=== PATIENT | male | born 1960 | race Caucasian/White ===

== ENCOUNTER 2021-04-03 20:16 | Inpatient (IN) ==
[2021-04-03 20:26] LABS: Basophils # (auto) 0.04 K/uL (0-0.2); Basophils % (auto) 0.3 %; Eosinophils # (auto) 0.04 K/uL (0-0.5); Eosinophils % (auto) 0.3 %; Hematocrit (blood only) 54.6 % (42-52); Hemoglobin 18.3 g/dL (14.0-18.0); Immature Granulocytes # (auto) 0.02 K/uL (0.00-0.02); Immature Granulocytes % (auto) 0.2 %; Lymphocytes # (auto) 1.16 K/uL (1.2-3.4); Lymphocytes % (auto) 9.8 %; Mean Corpuscular Hemoglobin 33.2 pg (25-34); Mean Corpuscular Hgb Conc 33.5 g/dL (32-36); Mean Corpuscular Volume 98.9 fL (80-100); Mean Platelet Volume 10.9 fL (7.4-10.4); Monocytes # (auto) 1.19 K/uL (0.11-0.59); Neutrophils % (auto) 79.4 %; Platelet Count 255 K/uL (130-400); RDW Coefficient of Variation 13.2 % (11.5-14.5); RDW Standard Deviation 47.5 fL (36.4-46.3); Red Blood Count 5.52 M/uL (4.7-6.1); White Blood Count 11.85 K/uL (4.8-10.8)
[2021-04-03] MEDS ORDERED: OPTIRAY 320 125ml IV ONE (20:27)
--- NOTE | 2021-04-03 20:36 | CT Scan Report ---
CT OF THE HEAD WITHOUT CONTRAST CLINICAL HISTORY: Stroke Like Symptoms COMPARISON STUDY: No previous studies for comparison. CT DOSE: 2684.61 mGy.cm TECHNIQUE: Helical axial images of the head were obtained without IV contrast. Automated exposure con trol was utilized for the study. A dose lowering technique was utilized adhering to the principles o f ALARA. FINDINGS: Exam is mildly compromised by artifact. No acute intracranial hemorrhage, midline shift or mass effect is present. The ventricular system is unremarkable. The basal cisterns are patent. No ext ra-axial collections are present. There are no findings to suggest acute dural sinus thrombosis or ac [place] territorial infarct. No significant calvarial abnormalities are present. There is a probable smal l mucous retention cyst within the right maxillary sinus. IMPRESSION: No acute intracranial findings. ACT 112: Negative or not required by law. Electronically signed by: Casimiro Rojo M.D. 04/03/2021 8:35 PM
--- NOTE | 2021-04-03 20:45 | CT Scan Report ---
CTA ANGIOGRAPHY OF THE HEAD CLINICAL HISTORY: Stroke Like Symptoms COMPARISON STUDY: No previous studies for comparison. TECHNIQUE: Helical axial images of the head were obtained following uneventful intravenous administr ation of Optiray. Sagittal and coronal reconstructions were viewed as well as maximal intensity proje ctions on an independent 3-D workstation. Automated exposure control was utilized for the study. A dose lowering technique was utilized adhering to the principles of ALARA. FINDINGS: No acute intracranial hemorrhage, midline shift or mass effect is present. Ventricular syst em is normal. Basal cisterns are patent. There are no extra axial collections. No intracranial aneury sm is identified. Note is made of severe multifocal stenoses of the bilateral posterior cerebral giacomo hannah. No central vessel occlusion is identified. There is no dissection within the intracranial vesse ls. Major dural sinuses are patent. A mucous retention cyst within the right maxillary sinus is incid entally noted. IMPRESSION: 1. Severe multifocal stenoses within the bilateral posterior cerebral arteries. 2. No intracranial aneurysm. No central vessel occlusion. ACT 112: Negative or not required by law. Electronically signed by: Casimiro Rojo M.D. 04/03/2021 8:44 PM
[2021-04-03 20:51] LABS: Alanine Aminotransferase 32 U/L (12-78); BUN Creatinine Ratio 11.5 (10-20); Blood Urea Nitrogen 14 mg/dl (7-18); Calcium 9.3 mg/dl (8.5-10.1); Carbon Dioxide 22 mmol/L (21-32); Chloride 105 mmol/L (98-107); Creatinine Clr Calc Pharmacy 99.4 ml/min; Est GFR (African American) 75.2 ml/min; Est GFR (Non-African American) 64.9 ml/min; Glucose 131 mg/dl (70-99); Sodium 136 mmol/L (136-145)
--- NOTE | 2021-04-03 20:52 | CT Scan Report ---
CT ANGIOGRAPHY OF THE NECK WITH CONTRAST CLINICAL HISTORY: Stroke Like Symptoms COMPARISON STUDY: No previous studies for comparison. Technique: CT angiography of the carotid and vertebral arteries was obtained using Optiray and 3D rec onstruction on an independent workstation. NASCET criteria was utilized. Automated exposure control was utilized for the study. A dose lowering technique was utilized adhering to the principles of ALA RA. Findings: Note is made of retropharyngeal bilateral carotids. There is moderate plaque within the pro ximal left internal carotid artery with 40% stenosis. Vessel measures 2.5 mm in caliber at site of st enosis. The distal left cervical internal carotid artery measures 4.9 mm in caliber. There is mild pl aque within the proximal right internal carotid artery without stenosis. The left vertebral artery is dominant. There is no dissection within the major vessels of the neck. There is no aneurysm within t he neck. Lung apices are unremarkable. There is no cervical lymphadenopathy. There is no acute cervic al spine fracture. IMPRESSION: 1. Moderate atherosclerotic plaque within the proximal left internal carotid artery which results in 40% stenosis. 2. Mild plaque within the proximal right internal carotid artery without significant stenosis. 3. No dissection within the major vessels of the neck. ACT 112: Negative or not required by law. Electronically signed by: Casimiro Rojo M.D. 04/03/2021 8:50 PM
--- NOTE | 2021-04-03 20:54 | Emergency Department Note ---
Impression & Plan Cerebrovascular accident, Atrial fibrillation ED Provider Note NAME: LINCONL HERNANDEZ AGE: 60 SEX: M : 1960 ARRIVES VIA: Ambulance INFORMANT: Patient, EMS ED PROVIDER(S): Aiden Euceda DO CHIEF COMPLAINT: Weakness HPI: The patient is a 60-year-old male who presented to the emergency department for evaluation of strokelike symptoms. The patient was made a stroke alert prior to arrival after a prehospital notification call was received. The patient started having weakness in his right upper extremity and difficulty speaking at approximately 6 PM this evening. The patient also states he started having upper extremity symptoms starting yesterday. He describes tingling in the right upper extremity. The patient denies having any nausea or vomiting. He denies having any headache. The patient states that he has no past medical history. The patient states that he has been drinking some alcohol but has had no alcohol since yesterday. The patient has had no trauma. He denies having any fevers. He has had no similar symptoms in the past. He does not see a family doctor and is currently taking no medications. ROS: See above HPI for pertinent positives & negatives. A total of 10 systems reviewed and were otherwise negative. PAST MEDICAL HISTORY: See Below PAST SURGICAL HISTORY: See Below FAMILY HISTORY: See Below SOCIAL HISTORY: See Below HOME MEDICATIONS: See Below ALLERGIES: See Below VITALS: See Below PHYSICAL EXAMINATION: GENERAL: The patient is awake and alert. The patient somewhat anxious appearing but overall comfortable. EYES: The conjunctivae are clear. The pupils are round and reactive. EARS, NOSE, MOUTH AND THROAT: The nose is without any evidence of any deformity. Mucous membranes are moist. Tongue is midline. NECK: The neck is nontender and supple. RESPIRATORY: Normal respiratory effort is noted there is no evidence of wheezing rhonchi or rales CARDIOVASCULAR: Irregular heart sounds were noted to auscultation. There was no definite murmur. GASTROINTESTINAL: The abdomen is soft. Abdomen is nontender. MUSCULOSKELETAL/EXTREMITIES: There is no evidence of gross deformity full range of motion is noted in the hips and shoulders. SKIN: Venous stasis changes were noted. Pedal edema was noted bilaterally. NEUROLOGIC: Patient is awake alert and oriented x3. There is no facial droop. The patient is able to hold each leg off the bed for greater than 5 seconds. The patient has diminished crm technical lead strength in the right upper extremity. He is able to hold both arms over his head but does have a drift ultimately in his right upper extremity. MEDICAL DECISION MAKING: The patient is a 60-year-old male who presented to the emergency department for strokelike symptoms. The patient was made a stroke alert prior to arrival. The patient states he started having weakness and speech difficulty at approximately 6 PM. Further questioning revealed the patient was having some numbness in his right upper extremity as early as yesterday. The patient did not have a headache. The patient did have a physical exam consistent with a possible stroke. The patient's plain CT did not show any acute disease. The patient's angiography did show some disease but no occlusion. The patient was found to be in atrial fibrillation which would be a new diagnosis for him. He was treated with IV antihypertensive medication. He was also treated with oral aspirin. I discussed the patient's laboratory and radiographic studies with him. I also discussed his case with the on-call [facility]. They have agreed to evaluate the patient in the emergency department for further management and disposition. Triage Nursing notes reviewed. Prior medical records reviewed Vital Signs: reviewed and remarkable for elevated blood pressure. Differential diagnosis: Infection, dehydration, metabolic abnormality, hypo/hyperglycemia, electrolyte disturbance, anemia, hypoxia, cardiac sources, intracerebral event, toxicologic, neurologic, as well as other pathologies. ER treatment provided: See below Diagnostics interpreted by me: ECG: EKG was obtained in the emergency department. My interpretation is atrial fibrillation at 101 bpm. There is no ectopy. There is no acute ST segment abnormalities noted. No previous tracing was available. Cardiac Monitoring: An order was placed for continuous cardiac monitoring. The monitor shows a rate of 92 bpm with atrial fibrillation rhythm. Laboratory studies: As stated above and show below. Imaging studies: See below Consultation(s): I discussed this case with Dr. Starkey who is on-call for the [facility] group. He will evaluate the patient in the emergency department. ED COURSE: Procedures: none Critical Care: I have personally spent greater than 45 minutes of critical care time in the direct management of this patient. This includes bedside care, interpretation of diagnostic studies, and testing, discussion with consultants, patient, and family members, and other required patient management activities. This 45 minutes is in excess of all separately billable procedures. Past Med/Surg History Social History Smoking Status: Former smoker Hx Alcohol Use: Yes Alcohol type: beer Hx Substance Use: No Preferred Language: Divehi Communication Ability: Effective Infusion Rn Required: No Beliefs That Will Affect Care: None Current Living Situation: Alone Other Information That Helps Us Care for You: No Feels Safe at Home: Yes Safety Concerns: Feels Safe At This Time Assistive Devices: Glasses, Hearing Aid - Left and Hearing Aid - Right Allergies Allergies Allergy/AdvReac Type Severity Reaction Status Date / Time No Known Allergies Allergy Unverified 04/03/21 21:46 Home Meds Home Medications Medication Instructions Recorded Confirmed cholecalciferol (vitamin D3) 25 0 mcg PO DAILY 04/03/21 04/03/21 mcg (1,000 unit) tablet (Vitamin D3) ibuprofen 200 mg tablet 400 mg PO Q6H PRN 04/03/21 04/03/21 multivitamin 1 tab PO DAILY 04/03/21 04/03/21 Results & Data (ED) Vital Signs Vital Signs - 24 hr 04/03/21 20:35 04/03/21 20:38 04/03/21 20:50 Temperature 36.9 C Temperature Source Oral Pulse Rate 105 H 107 H 107 H Pulse Rate [Right Finger] Pulse Rate from SpO2 Sensor 105 H 112 H Pulse Rhythm [Right Finger] Respiratory Rate 16 24 28 H Respiratory Effort / Characteristics Non-Labored Respiratory Depth Normal Respiratory Pattern Regular Blood Pressure 209/118 H 209/118 H 198/122 H Blood Pressure [Left Arm] Blood Pressure Mean 148 148 147 Blood Pressure Mean [Left Arm] Blood Pressure Position Lying Pulse Oximetry 95 96 94 Oxygen Delivery Method Room Air Sepsis Recent Fever Within 48 Hours No Sepsis New/Unexplained Change in Mental Status N/A Sepsis Action Taken by Nursing Physician Notified 04/03/21 20:51 04/03/21 21:10 04/03/21 21:28 Temperature Temperature Source Pulse Rate 103 H 94 H Pulse Rate [Right Finger] 110 H 100 H 86 Pulse Rate from SpO2 Sensor 100 H 88 Pulse Rhythm [Right Finger] Irregular Irregular Respiratory Rate 24 25 H 23 Respiratory Effort / Characteristics Non-Labored Non-Labored Non-Labored Respiratory Depth Normal Normal Normal Respiratory Pattern Blood Pressure 215/111 H 204/135 H Blood Pressure [Left Arm] 198/122 H 215/111 H 204/135 H Blood Pressure Mean 145 158 Blood Pressure Mean [Left Arm] 147 145 158 Blood Pressure Position Pulse Oximetry 95 94 94 Oxygen Delivery Method Room Air Room Air Room Air Sepsis Recent Fever Within 48 Hours Sepsis New/Unexplained Change in Mental Status Sepsis Action Taken by Nursing 04/03/21 21:31 04/03/21 21:33 04/03/21 21:47 Temperature Temperature Source Pulse Rate 87 99 H Pulse Rate [Right Finger] 81 Pulse Rate from SpO2 Sensor 92 H 92 H Pulse Rhythm [Right Finger] Respiratory Rate 23 24 22 Respiratory Effort / Characteristics Non-Labored Respiratory Depth Normal Respiratory Pattern Blood Pressure 172/110 H Blood Pressure [Left Arm] 172/110 H Blood Pressure Mean 130 Blood Pressure Mean [Left Arm] 130 Blood Pressure Position Pulse Oximetry 93 92 94 Oxygen Delivery Method Room Air Sepsis Recent Fever Within 48 Hours Sepsis New/Unexplained Change in Mental Status Sepsis Action Taken by Nursing 04/03/21 21:49 04/03/21 22:01 04/03/21 22:04 Temperature Temperature Source Pulse Rate 83 Pulse Rate [Right Finger] 83 89 Pulse Rate from SpO2 Sensor 85 Pulse Rhythm [Right Finger] Respiratory Rate 24 28 H 24 Respiratory Effort / Characteristics Respiratory Depth Respiratory Pattern Blood Pressure 172/108 H Blood Pressure [Left Arm] 170/103 H 172/108 H Blood Pressure Mean 129 Blood Pressure Mean [Left Arm] 125 129 Blood Pressure Position Pulse Oximetry 94 94 95 Oxygen Delivery Method Room Air Room Air Sepsis Recent Fever Within 48 Hours Sepsis New/Unexplained Change in Mental Status Sepsis Action Taken by Nursing 04/03/21 22:27 04/03/21 22:30 04/03/21 22:40 Temperature Temperature Source Pulse Rate 87 89 84 Pulse Rate [Right Finger] Pulse Rate from SpO2 Sensor 88 89 82 Pulse Rhythm [Right Finger] Respiratory Rate 21 22 17 Respiratory Effort / Characteristics Respiratory Depth Respiratory Pattern Blood Pressure Blood Pressure [Left Arm] Blood Pressure Mean Blood Pressure Mean [Left Arm] Blood Pressure Position Pulse Oximetry 95 95 95 Oxygen Delivery Method Sepsis Recent Fever Within 48 Hours Sepsis New/Unexplained Change in Mental Status Sepsis Action Taken by Care Home Medications Current Medication List: was personally reviewed by me Laboratory Data Attestation: I reviewed the patient's lab results. Result diagrams: 04/03/21 19:46 04/03/21 20:39 Lab Results 04/03/21 04/03/21 04/03/21 Range/Units 19:46 19:46 19:46 WBC 11.85 H (4.8-10.8) K/uL RBC 5.52 (4.7-6.1) M/uL Hgb 18.3 H (14.0-18.0) g/dL Hct 54.6 H (42-52) % MCV 98.9 (80-100) fL MCH 33.2 (25-34) pg MCHC 33.5 (32-36) g/dL RDW Std Deviation 47.5 H (36.4-46.3) fL RDW Coeff of Ash 13.2 (11.5-14.5) % Plt Count 255 (130-400) K/uL MPV 10.9 H (7.4-10.4) fL Immature Gran % (Auto) 0.2 % Neut % (Auto) 79.4 % Lymph % (Auto) 9.8 % Mcdonald % (Auto) 10.0 % Eos % (Auto) 0.3 % Baso % (Auto) 0.3 % Neut # (Auto) 9.40 H (1.4-6.5) K/uL Lymph # (Auto) 1.16 L (1.2-3.4) K/uL Mcdonald # (Auto) 1.19 H (0.11-0.59) K/uL Eos # (Auto) 0.04 (0-0.5) K/uL Baso # (Auto) 0.04 (0-0.2) K/uL Immature Gran # (Auto) 0.02 (0.00-0.02) K/uL PT Cancelled INR Cancelled APTT Cancelled PTT Ratio Cancelled Sodium 136 (136-145) mmol/L Potassium (3.5-5.1) mmol/L Chloride 105 (98-107) mmol/L Carbon Dioxide 22 (21-32) mmol/L Anion Gap 10.0 (3-11) BUN 14 (7-18) mg/dl Creatinine 1.20 (0.6-1.4) mg/dl Est Cr Clr Drug Dosing 99.4 ml/min Est GFR ( Amer) 75.2 ml/min Est GFR (Non-Af Amer) 64.9 ml/min BUN/Creatinine Ratio 11.5 (10-20) Glucose 131 H (70-99) mg/dl POC Glucose (70-99) mg/dl Calcium 9.3 (8.5-10.1) mg/dl Magnesium (1.8-2.4) mg/dl Total Bilirubin 1.6 H (0.2-1) mg/dl AST (15-37) U/L ALT 32 (12-78) U/L Alkaline Phosphatase 85 (45-117) U/L Troponin I < 0.015 (0-0.045) ng/ml Total Protein 8.0 (6.4-8.2) gm/dl Albumin 4.0 (3.4-5.0) gm/dl Globulin 4.0 (2.5-4.0) gm/dl Albumin/Globulin Ratio 1.0 (0.9-2) COVID-19 Eval Order SARS-CoV-2 (PCR) (Negative) 04/03/21 04/03/21 04/03/21 Range/Units 20:35 20:39 20:39 WBC (4.8-10.8) K/uL RBC (4.7-6.1) M/uL Hgb (14.0-18.0) g/dL Hct (42-52) % MCV (80-100) fL MCH (25-34) pg MCHC (32-36) g/dL RDW Std Deviation (36.4-46.3) fL RDW Coeff of Ash (11.5-14.5) % Plt Count (130-400) K/uL MPV (7.4-10.4) fL Immature Gran % (Auto) % Neut % (Auto) % Lymph % (Auto) % Mcdonald % (Auto) % Eos % (Auto) % Baso % (Auto) % Neut # (Auto) (1.4-6.5) K/uL Lymph # (Auto) (1.2-3.4) K/uL Mcdonald # (Auto) (0.11-0.59) K/uL Eos # (Auto) (0-0.5) K/uL Baso # (Auto) (0-0.2) K/uL Immature Gran # (Auto) (0.00-0.02) K/uL PT 10.4 INR 1.0 APTT 25.9 PTT Ratio 1.0 Sodium (136-145) mmol/L Potassium 4.3 (3.5-5.1) mmol/L Chloride (98-107) mmol/L Carbon Dioxide (21-32) mmol/L Anion Gap (3-11) BUN (7-18) mg/dl Creatinine (0.6-1.4) mg/dl Est Cr Clr Drug Dosing ml/min Est GFR ( Amer) ml/min Est GFR (Non-Af Amer) ml/min BUN/Creatinine Ratio (10-20) Glucose (70-99) mg/dl POC Glucose 121 H (70-99) mg/dl Calcium (8.5-10.1) mg/dl Magnesium 2.4 (1.8-2.4) mg/dl Total Bilirubin (0.2-1) mg/dl AST 23 (15-37) U/L ALT (12-78) U/L Alkaline Phosphatase (45-117) U/L Troponin I (0-0.045) ng/ml Total Protein (6.4-8.2) gm/dl Albumin (3.4-5.0) gm/dl Globulin (2.5-4.0) gm/dl Albumin/Globulin Ratio (0.9-2) COVID-19 Eval Order SARS-CoV-2 (PCR) (Negative) 04/03/21 04/03/21 Range/Units 20:46 20:46 WBC (4.8-10.8) K/uL RBC (4.7-6.1) M/uL Hgb (14.0-18.0) g/dL Hct (42-52) % MCV (80-100) fL MCH (25-34) pg MCHC (32-36) g/dL RDW Std Deviation (36.4-46.3) fL RDW Coeff of Ash (11.5-14.5) % Plt Count (130-400) K/uL MPV (7.4-10.4) fL Immature Gran % (Auto) % Neut % (Auto) % Lymph % (Auto) % Mcdonald % (Auto) % Eos % (Auto) % Baso % (Auto) % Neut # (Auto) (1.4-6.5) K/uL Lymph # (Auto) (1.2-3.4) K/uL Mcdonald # (Auto) (0.11-0.59) K/uL Eos # (Auto) (0-0.5) K/uL Baso # (Auto) (0-0.2) K/uL Immature Gran # (Auto) (0.00-0.02) K/uL PT INR APTT PTT Ratio Sodium (136-145) mmol/L Potassium (3.5-5.1) mmol/L Chloride (98-107) mmol/L Carbon Dioxide (21-32) mmol/L Anion Gap (3-11) BUN (7-18) mg/dl Creatinine (0.6-1.4) mg/dl Est Cr Clr Drug Dosing ml/min Est GFR ( Amer) ml/min Est GFR (Non-Af Amer) ml/min BUN/Creatinine Ratio (10-20) Glucose (70-99) mg/dl POC Glucose (70-99) mg/dl Calcium (8.5-10.1) mg/dl Magnesium (1.8-2.4) mg/dl Total Bilirubin (0.2-1) mg/dl AST (15-37) U/L ALT (12-78) U/L Alkaline Phosphatase (45-117) U/L Troponin I (0-0.045) ng/ml Total Protein (6.4-8.2) gm/dl Albumin (3.4-5.0) gm/dl Globulin (2.5-4.0) gm/dl Albumin/Globulin Ratio (0.9-2) COVID-19 Eval Order Covid19 at [facility] SARS-CoV-2 (PCR) NEGATIVE (Negative) Administered Medications Potassium Chloride/Sodium Chloride (Normal Saline W/20 Meq Kcl) 20 meq in 1,000 mls @ 80 mls/hr IV .[id number] HALLIE Stop: 04/04/21 12:59 Last Admin: 04/04/21 01:48 Dose: 80 mls/hr Documented by: [id number] Discontinued Medications Aspirin (Aspirin Chew 324 Mg) 324 mg PO NOW STA Stop: 04/03/21 21:15 Last Admin: 04/03/21 21:19 Dose: 324 mg Documented by: [id number] Lorazepam (Ativan) 1 mg in 2 mls @ 2 mls/min IV NOW STA Stop: 04/03/21 23:30 Last Admin: 04/03/21 23:45 Dose: 2 mls/min Documented by: [id number] Ioversol (Optiray 320 125ml) 118 ml IV ONCE ONE Stop: 04/03/21 20:28 Last Admin: 04/03/21 20:28 Dose: 118 ml Documented by: [id number] Labetalol HCl (Labetalol Hcl Iv 5 Mg/Ml 20ml) 20 mg IV NOW STA Stop: 04/03/21 21:15 Last Admin: 04/03/21 21:19 Dose: 20 mg Documented by: [id number] Cosigned by: [id number] Lorazepam (Lorazepam 2 Mg/4 Ml Vial) Confirm Administered Dose 2 mg .ROUTE .STK- MED ONE Stop: 04/03/21 23:33 Last Admin: 04/03/21 23:45 Dose: Not Given Documented by: [id number] Imaging Data Attestation: I personally reviewed and interpreted this imaging study as follows: My Impression: 1 view chest x-ray was obtained in the emergency department. My interpretation is cardiomegaly, no definite filtrate, no acute disease. Radiologist's Impression: Head CT 04/03/21 20:18 CT OF THE HEAD WITHOUT CONTRAST CLINICAL HISTORY: Stroke Like Symptoms COMPARISON STUDY: No previous studies for comparison. CT DOSE: 2684.61 mGy.cm TECHNIQUE: Helical axial images of the head were obtained without IV contrast. Automated exposure control was utilized for the study. A dose lowering technique was utilized adhering to the principles of ALARA. FINDINGS: Exam is mildly compromised by artifact. No acute intracranial hemorrha ge, midline shift or mass effect is present. The ventricular system is unremarkable. The basal cisterns are patent. No extra-axial collections are present. There are no findings to suggest acute dural sinus thrombosis or acute territorial infarct. No significant calvarial abnormalities are present. There is a probable small mucous retention cyst within the right maxillary sinus. IMPRESSION: No acute intracranial findings. ACT 112: Negative or not required by law. Electronically signed by: Casimiro Rojo M.D. 04/03/2021 8:35 PM Head CTA 04/03/21 20:18 CTA ANGIOGRAPHY OF THE HEAD CLINICAL HISTORY: Stroke Like Symptoms COMPARISON STUDY: No previous studies for comparison. TECHNIQUE: Helical axial images of the head were obtained following uneventful intravenous administration of Optiray. Sagittal and coronal reconstructions were viewed as well as maximal intensity projections on an independent 3-D workstat ion. Automated exposure control was utilized for the study. A dose lowering technique was utilized adhering to the principles of ALARA. FINDINGS: No acute intracranial hemorrhage, midline shift or mass effect is present. Ventricular system is normal. Basal cisterns are patent. There are no extra axial collections. No intracranial aneurysm is identified. Note is made of severe multifocal stenoses of the bilateral posterior cerebral arteries. No central vessel occlusion is identified. There is no dissection within the intracranial vessels. Major dural sinuses are patent. A mucous retention cyst within the right maxillary sinus is incidentally noted. IMPRESSION: 1. Severe multifocal stenoses within the bilateral posterior cerebral arteries. 2. No intracranial aneurysm. No central vessel occlusion. ACT 112: Negative or not required by law. Electronically signed by: Casimiro Rojo M.D. 04/03/2021 8:44 PM Neck CTA 04/03/21 20:18 CT ANGIOGRAPHY OF THE NECK WITH CONTRAST CLINICAL HISTORY: Stroke Like Symptoms COMPARISON STUDY: No previous studies for comparison. Technique: CT angiography of the carotid and vertebral arteries was obtained us ing Optiray and 3D reconstruction on an independent workstation. NASCET criteria was utilized. Automated exposure control was utilized for the study. A dose lowering technique was utilized adhering to the principles of ALARA. Findings: Note is made of retropharyngeal bilateral carotids. There is moderate plaque within the proximal left internal carotid artery with 40% stenosis. Vessel measures 2.5 mm in caliber at site of stenosis. The distal left cervical internal carotid artery measures 4.9 mm in caliber. There is mild plaque within the proximal right internal carotid artery without stenosis. The left vertebral artery is dominant. There is no dissection within the major vessels of the neck. There is no aneurysm within the neck. Lung apices are unremarkable. There is no cervical lymphadenopathy. There is no acute cervical spine fracture. IMPRESSION: 1. Moderate atherosclerotic plaque within the proximal left internal carotid artery which results in 40% stenosis. 2. Mild plaque within the proximal right internal carotid artery without significant stenosis. 3. No dissection within the major vessels of the neck. ACT 112: Negative or not required by law. Electronically signed by: Casimiro Rojo M.D. 04/03/2021 8:50 PM Discharge Plan Visit Data Chief Complaint: Stroke Alert Stated Complaint: CVA SYMPTOMS ED Provider: Aiden Euceda Discharge Problem: Cerebrovascular accident, Atrial fibrillation Patient Disposition: Admitted As Inpatient Condition: Good Discharge Instructions Interventions: ED Discharge Assessment Last Done: 04/04/21 00:00 Discharge Problem: Cerebrovascular accident Qualifiers: CVA mechanism: unspecified Qualified Code(s): I63.9 - Cerebral infarction, unspecified Atrial fibrillation Qualifiers: Atrial fibrillation type: unspecified Qualified Code(s): I48.91 - Unspecified atrial fibrillation
[2021-04-03 20:58] LABS: Alkaline Phosphatase 85 U/L (45-117); Bilirubin,Total 1.6 mg/dl (0.2-1); Troponin I < 0.015 ng/ml (0-0.045)
[2021-04-03 21:00] LABS: Potassium 4.3 mmol/L (3.5-5.1)
[2021-04-03 21:01] LABS: Partial Thromboplastin Time 25.9 Seconds (21.0-31.0); Prothrombin Time 10.4 Seconds (9.0-12.0)
[2021-04-03 21:05] LABS: Magnesium 2.4 mg/dl (1.8-2.4)
[2021-04-03] MEDS ORDERED: LABETALOL HCL IV 5 MG/ML 20ML IV STA (21:14)
[2021-04-03] MEDS ORDERED: ASPIRIN CHEW 324 MG PO STA (21:14)
--- NOTE | 2021-04-03 22:47 | History & Physical Report ---
Date of Service April 03, 2021 Assessment & Plan (1) Cerebrovascular accident: Plan: Cerebral vascular accident-MRI of head: Multiple small acute/early subacute ischemic infarct involving cortex and subcortical white matter of the left posterior frontal and parietal lobe as well as small focal cortically based infarct in the left occipital lobe. Small chronic infarcts in the right cerebellar hemisphere. No significant mass-effect. Most likely secondary to atrial fibrillation. Stroke without TPA order set Consult PT/OT/speech/neurology Symptom onset is likely closer to 24 hours, and therefore not a TPA candidate Chewable aspirin 81 mg every morning N.p.o. until assessed by speech therapy or passes bedside swallowing Check hemoglobin A1c and fasting lipid panel (2) Atrial fibrillation: Plan: Atrial fibrillation/hypertension- The patient will be admitted to telemetry for serial cardiac enzymes, serial EKG's, cardiac rhythm monitoring and a 2-D echocardiogram with Dopplers. Unknown the interval time this has been present The atrial fibrillation likely has contributed to/caused the above CVA Place on Lopressor 5 mg IV every 4 hours with hold parameters Start heparin IV low-dose no bolus Consult cardiology (3) Hypertension: Plan: See above (4) Polycythemia: Plan: Hemoglobin 18.3, hematocrit 54.6 Likely secondary to morbid obesity, obesity hypoventilation syndrome May be contributory to CVA (5) Morbid obesity: Plan: BMI 41.9 (6) Hyperbilirubinemia: Plan: Isolated bilirubin elevation, Gilbert's disease History of Present Illness Chief Complaint: The patient presented to the emergency department after being made a stroke alert due to prehospital notification call describing right upper extremity weakness and difficulty speaking since about 6 PM this evening Primary Care Provider: NO PCP The patient is a 60-year-old male with no significant past medical history, due to avoidance of the medical system. He presented as noted above. [facility], he reports that he had actually started having symptoms the previous day, and with no longer made as a stroke alert. His primary symptoms are that of knowing what he wants to say but not being able to get the words out. He denies any recent travels or sick exposures. He denies any previous occurrence of the symptoms. He cannot tell us last time he saw a physician. Allergies Allergy/AdvReac Type Severity Reaction Status Date / Time No Known Allergies Allergy Unverified 04/03/21 21:46 Home Medications Medication Instructions Recorded Confirmed Type cholecalciferol (vitamin D3) 25 0 mcg PO DAILY 04/03/21 04/03/21 History mcg (1,000 unit) tablet (Vitamin D3) ibuprofen 200 mg tablet 400 mg PO Q6H PRN 04/03/21 04/03/21 History multivitamin 1 tab PO DAILY 04/03/21 04/03/21 History Past Med/Surg History Medical History (Updated 04/04/21 @ 05:43 by Say Junior MD) Morbid obesity Social History Smoking Status: Former smoker Hx Alcohol Use: Yes Alcohol type: beer Hx Substance Use: No Preferred Language: Syrian Communication Ability: Effective Distributed Generation Project 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 The patient denies chest pain, palpitations, shortness of breath, dyspnea on exertion, cough, sore throat, fevers, chills, sweats, weight change, fatigue, nausea, vomiting, diarrhea , constipation, abdominal pain, pelvic pain, blood in urine or stool, dysuria, urinary frequency or urgency, loss of consciousness, rash, abnormal bruising or bleeding, imbalance, focal or generalized weakness, numbness or tingling in legs, generalized arthralgias or myalgias, back or neck pain, or night sweats. The review of systems is otherwise negative other than for that already noted above, and at least 10 systems have been reviewed. Physical Exam Physical Exam: The patient is awake, alert, has significant difficulty with speech, morbidly obese, normocephalic and atraumatic, sitting upright in bed and in no acute distress. HEENT--PERRL, EOMI, mucous membranes and oropharynx dry. Neck--supple. No JVD. No bruits. Heart--irregularly irregular. no murmurs, rubs or gallops. Lungs--clear bilaterally, no respiratory distress, no accessory muscle use. Abdomen--normal bowel sounds and soft. Nontender. Nondistended. Morbidly obese Extremities--No edema. Dermatologic--psoriatic appearing rash on extremities bilaterally Neurologic--cranial nerves II through XII grossly intact. Rheumatologic--limited exam due to body habitus Psychiatric--normal affect. Results & Data Results & Data ([facility]) Vital Signs (Past 12 Hours) Vital Signs Temp Pulse Pulse Resp BP BP Pulse Ox 04/03/21 22:04 89 24 172/108 H 95 04/03/21 21:49 83 24 170/103 H 94 04/03/21 21:33 81 24 172/110 H 92 04/03/21 21:28 86 24 204/135 H 93 04/03/21 21:10 100 H 26 H 215/111 H 94 04/03/21 20:51 110 H 24 198/122 H 95 04/03/21 20:38 98.4 F 107 H 24 209/118 H 96 Laboratory Results Laboratory Results WBC 11.85 K/uL (4.8-10.8) H 04/03/21 19:46 RBC 5.52 M/uL (4.7-6.1) 04/03/21 19:46 Hgb 18.3 g/dL (14.0-18.0) H 04/03/21 19:46 Hct 54.6 % (42-52) H 04/03/21 19:46 MCV 98.9 fL (80-100) 04/03/21 19:46 MCH 33.2 pg (25-34) 04/03/21 19:46 MCHC 33.5 g/dL (32-36) 04/03/21 19:46 RDW Std Deviation 47.5 fL (36.4-46.3) H 04/03/21 19:46 RDW Coeff of Ash 13.2 % (11.5-14.5) 04/03/21 19:46 Plt Count 255 K/uL (130-400) 04/03/21 19:46 MPV 10.9 fL (7.4-10.4) H 04/03/21 19:46 Immature Gran % (Auto) 0.2 % 04/03/21 19:46 Neut % (Auto) 79.4 % 04/03/21 19:46 Lymph % (Auto) 9.8 % 04/03/21 19:46 Mcdonough % (Auto) 10.0 % 04/03/21 19:46 Eos % (Auto) 0.3 % 04/03/21 19:46 Baso % (Auto) 0.3 % 04/03/21 19:46 Neut # (Auto) 9.40 K/uL (1.4-6.5) H 04/03/21 19:46 Lymph # (Auto) 1.16 K/uL (1.2-3.4) L 04/03/21 19:46 Mcdonough # (Auto) 1.19 K/uL (0.11-0.59) H 04/03/21 19:46 Eos # (Auto) 0.04 K/uL (0-0.5) 04/03/21 19:46 Baso # (Auto) 0.04 K/uL (0-0.2) 04/03/21 19:46 Immature Gran # (Auto) 0.02 K/uL (0.00-0.02) 04/03/21 19:46 PT 10.4 Seconds (9.0-12.0) 04/03/21 20:39 INR 1.0 (0.9-1.1) 04/03/21 20:39 APTT 25.9 Seconds (21.0-31.0) 04/03/21 20:39 PTT Ratio 1.0 04/03/21 20:39 Sodium 136 mmol/L (136-145) 04/03/21 19:46 Potassium 4.3 mmol/L (3.5-5.1) 04/03/21 20:39 Chloride 105 mmol/L (98-107) 04/03/21 19:46 Carbon Dioxide 22 mmol/L (21-32) 04/03/21 19:46 Anion Gap 10.0 (3-11) 04/03/21 19:46 BUN 14 mg/dl (7-18) 04/03/21 19:46 Creatinine 1.20 mg/dl (0.6-1.4) 04/03/21 19:46 Est Cr Clr Drug Dosing 99.4 ml/min 04/03/21 19:46 Est GFR ( Amer) 75.2 ml/min 04/03/21 19:46 Est GFR (Non-Af Amer) 64.9 ml/min 04/03/21 19:46 BUN/Creatinine Ratio 11.5 (10-20) 04/03/21 19:46 Glucose 131 mg/dl (70-99) H 04/03/21 19:46 POC Glucose 121 mg/dl (70-99) H 04/03/21 20:35 Calcium 9.3 mg/dl (8.5-10.1) 04/03/21 19:46 Magnesium 2.4 mg/dl (1.8-2.4) 04/03/21 20:39 Total Bilirubin 1.6 mg/dl (0.2-1) H 04/03/21 19:46 AST 23 U/L (15-37) 04/03/21 20:39 ALT 32 U/L (12-78) 04/03/21 19:46 Alkaline Phosphatase 85 U/L (45-117) 04/03/21 19:46 Troponin I < 0.015 ng/ml (0-0.045) 04/03/21 19:46 Total Protein 8.0 gm/dl (6.4-8.2) 04/03/21 19:46 Albumin 4.0 gm/dl (3.4-5.0) 04/03/21 19:46 Globulin 4.0 gm/dl (2.5-4.0) 04/03/21 19:46 Albumin/Globulin Ratio 1.0 (0.9-2) 04/03/21 19:46 COVID-19 Eval Order Covid19 at [facility] 04/03/21 20:46 SARS-CoV-2 (PCR) NEGATIVE (Negative) 04/03/21 20:[address] 04/03/21 20:18 CT OF THE HEAD WITHOUT CONTRAST CLINICAL HISTORY: Stroke Like Symptoms COMPARISON STUDY: No previous studies for comparison. CT DOSE: 2684.61 mGy.cm TECHNIQUE: Helical axial images of the head were obtained without IV contrast. Automated exposure control was utilized for the study. A dose lowering technique was utilized adhering to the principles of ALARA. FINDINGS: Exam is mildly compromised by artifact. No acute intracranial hemorrhage, midline shift or mass effect is present. The ventricular system is unremarkable. The basal cisterns are patent. No extra-axial collections are present. There are no findings to suggest acute dural sinus thrombosis or acute territorial infarct. No significant calvarial abnormalities are present. There is a probable small mucous retention cyst within the right maxillary sinus. IMPRESSION: No acute intracranial findings. ACT 112: Negative or not required by law. Electronically signed by: Casimiro Rojo M.D. 04/03/2021 8:35 PM Head CTA 04/03/21 20:18 CTA ANGIOGRAPHY OF THE HEAD CLINICAL HISTORY: Stroke Like Symptoms COMPARISON STUDY: No previous studies for comparison. TECHNIQUE: Helical axial images of the head were obtained following uneventful intravenous administration of Optiray. Sagittal and coronal reconstructions were viewed as well as maximal intensity projections on an independent 3-D workstation. Automated exposure control was utilized for the study. A dose lowering technique was utilized adhering to the principles of ALARA. FINDINGS: No acute intracranial hemorrhage, midline shift or mass effect is present. Ventricular system is normal. Basal cisterns are patent. There are no extra axial collections. No intracranial aneurysm is identified. Note is made of severe multifocal stenoses of the bilateral posterior cerebral arteries. No c entral vessel occlusion is identified. There is no dissection within the intracranial vessels. Major dural sinuses are patent. A mucous retention cyst within the right maxillary sinus is incidentally noted. IMPRESSION: 1. Severe multifocal stenoses within the bilateral posterior cerebral arteries. 2. No intracranial aneurysm. No central vessel occlusion. ACT 112: Negative or not required by law. Electronically signed by: Casimiro Rojo M.D. 04/03/2021 8:44 PM Neck CTA 04/03/21 20:18 CT ANGIOGRAPHY OF THE NECK WITH CONTRAST CLINICAL HISTORY: Stroke Like Symptoms COMPARISON STUDY: No previous studies for comparison. Technique: CT angiography of the carotid and vertebral arteries was obtained using Optiray and 3D reconstruction on an independent workstation. NASCET criteria was utilized. Automated exposure control was utilized for the study. A dose lowering technique was utilized adhering to the principles of ALARA. Findings: Note is made of retropharyngeal bilateral carotids. There is moderate plaque within the proximal left internal carotid artery with 40% stenosis. Vessel measures 2.5 mm in caliber at site of stenosis. The distal left cervical internal carotid artery measures 4.9 mm in caliber. There is mild plaque within the proximal right internal carotid artery without stenosis. The left vertebral artery is dominant. There is no dissection within the major vessels of the neck. There is no aneurysm within the neck. Lung apices are unremarkable. There is no cervical lymphadenopathy. There is no acute cervical spine fracture. IMPRESSION: 1. Moderate atherosclerotic plaque within the proximal left internal carotid artery which results in 40% stenosis. 2. Mild plaque within the proximal right internal carotid artery without significant stenosis. 3. No dissection within the major vessels of the neck. ACT 112: Negative or not required by law. Electronically signed by: Casimiro Rojo M.D. 04/03/2021 8:50 PM Diagnostic Findings [facility] Patient: LINCOLN HERNANDEZ (Male) : 58 Status: ER Date: 04/04/21 00:09 Room #: History: SLURRED SPEECH AND RIGHT SIDED WEAKNESS SINCE Monday04/02/21. NO TRAUMA. Slices: 259 Priors: Tech: Garry Moore @ [phone] Exams: MRI HEAD Contrast: Accession Numbers: [id number] Referring Physician: REFERRED SELF Preliminary Findings Only See Final Report For Complete Findings MRI HEAD : Multiple small acute/early subacute ischemic infarcts involving cortex and subcortical white matter of the left posterior frontal and parietal lobe as well as small focal cortically based infarct in the left occipital lobe. No significant mass-effect. No midline shift. Stable size and configuration of the ventricular system. No evidence of intracranial hemorrhage. Major intracranial arterial flow voids are maintained. Small chronic infarcts in the right cerebellar hemisphere. Small mucous retention cyst in the right maxillary sinus. Radiologist: Annel Lopes M.D. Study ready at 00:22 and initial results transmitted at 01:21 Communications: Clear Time Type Notes 04/04/21 01:26 Call Doctor Regarding Stroke, called Dr. Junior on 04/04 01:26 (-04:00) *This report constitutes a preliminary interpretation only. Non-acute findings felt to be unrelated to the clinical presentation may not be discussed in this report. The study will be interpreted and a final report will be generated by [facility] local Radiologist the following shift. To reach the hospital radiology department call [phone]. If a discrepancy is found between the preliminary and final interpretations of this study, please notify us via our Client Portal at [email or web address], under QA Exams.You can also fax this report with a description of the discrepancy, or include the final report, to our daytime fax number [phone].If faxing, please indicate the severity of discrepancy using one of the following categories: [ ] 1 - Agree/Informational [ ] 2 - Unlikely to Affect Management [ ] 3 - Possible Eventual Change of Management [ ] 4 - Probable Immediate Change of Management For all other patient related information, please fax us at [phone]. [id number] ECG Additional Comments: LINCOLN HERNANDEZ ID:[id number] 03-APR-2021 20:47:38 [facility]-EDSTAT ROUTINE RETRIEVAL Poor data quality, interpretation may be adversely af fected Atrial fibrillation with rapid ventricular response Nonspecific ST abnormality Abnormal ECG No previous ECGs available 25mm/s 10mm/mV 150Hz 9.0.9 12SL 241 GONZALEZ: 3 Unconfirmed Vent. rate 101 BPM SD interval * ms QRS duration 72 ms QT/QTc 334/433 ms P-R-T axes * 4 63 1960 (60 yr) Male 1lb Room: Code Status & VTE Plan Code Status Full code VTE Prophylaxis Plan VTE Prophylaxis will be ordered: Yes PG Care Time/CCT Total # of Minutes Spent Total Time Spent with Patient: Total time spent is greater than 50% in coordination of care (as documented) at patient's floor/unit and/or counseling patient: Coding Level of Care Code 86622 Initial Inpt Care Lvl 3 Diagnoses Morbid obesity E66.01 Hyperbilirubinemia E80.6 Polycythemia D75.1 Cerebrovascular accident I63.9 CVA mechanism: unspecified Atrial fibrillation I48.91 Atrial fibrillation type: unspecified Hypertension I10 (1) Cerebrovascular accident CVA mechanism: unspecified Qualified Code(s): I63.9 - Cerebral infarction, unspecified (2) Atrial fibrillation Atrial fibrillation type: unspecified Qualified Code(s): I48.91 - Unspecified atrial fibrillation
[2021-04-03] MEDS ORDERED: LORazepam 1 MG/2 ML VIAL IV STA (23:29)
[2021-04-03] MEDS ORDERED: LORazepam 2 MG/4 ML VIAL ONE (23:32)
[2021-04-04] MEDS ORDERED: PHARMACIST DISCHARGE MED REC CONSULT PRN (00:23)
[2021-04-04] MEDS ORDERED: NITROGLYCERIN SL 0.4 MG/TAB TAB SL PRN (00:23)
[2021-04-04] MEDS ORDERED: ONDANSETRON INJ 2 MG/ML 2 ML VIAL IV PRN (00:23)
[2021-04-04] MEDS ORDERED: NSS + 20MEQ KCL 20 MEQ/1,000 ML BAG IV SCH (00:30)
[2021-04-04] MEDS ORDERED: HEPARIN SODIUM/DEXTROSE 25,000 UNITS/500 ML BAG IV SCH (02:30)
[2021-04-04] MEDS ORDERED: HEPARIN 25000 UNIT/500 ML D5W IV ONE (03:04)
[2021-04-04] MEDS: METOPROLOL TARTRATE 1 MG/ML VIAL IV SCH ×4 (04:08→16:47)
[2021-04-04 06:32] LABS: Basophils # (auto) 0.05 K/uL (0-0.2); Basophils % (auto) 0.4 %; Eosinophils # (auto) 0.11 K/uL (0-0.5); Hemoglobin 17.9 g/dL (14.0-18.0); Immature Granulocytes # (auto) 0.02 K/uL (0.00-0.02); Immature Granulocytes % (auto) 0.2 %; Lymphocytes # (auto) 1.71 K/uL (1.2-3.4); Lymphocytes % (auto) 14.9 %; Mean Corpuscular Hemoglobin 33.1 pg (25-34); Mean Corpuscular Hgb Conc 33.8 g/dL (32-36); Mean Corpuscular Volume 98.1 fL (80-100); Mean Platelet Volume 10.5 fL (7.4-10.4); Monocytes # (auto) 1.36 K/uL (0.11-0.59); Monocytes % (auto) 11.8 %; Neutrophils # (auto) 8.26 K/uL (1.4-6.5); Neutrophils % (auto) 71.7 %; Platelet Count 240 K/uL (130-400); RDW Coefficient of Variation 13.6 % (11.5-14.5); White Blood Count 11.51 K/uL (4.8-10.8)
--- NOTE | 2021-04-04 06:32 | XRay Report ---
XR chest 1V portable CLINICAL HISTORY: Stroke Like Symptoms COMPARISON STUDY: No previous studies for comparison. FINDINGS: No pneumothorax. No pleural effusion. Reticular nodular opacities are seen in bilateral lower lungs with mild airspace component on the rig ht and might represent pneumonia or pulmonary edema. Cardiomediastinal silhouette is mildly enlarged. Right paratracheal stripe is slightly widened . Azyg os silhouette is enlarged. No significant pulmonary vascular congestion.. Osseous structures: Degenerative changes of the spine. IMPRESSION: 1. Mild cardiomegaly. Pulmonary edema. Differential diagnosis also include pneumonia. ACT 112: Negative or not required by law. The above report was generated using voice recognition software. It may contain grammatical, syntax o r spelling errors. Electronically signed by: Nicole Johnson DO 04/04/2021 6:31 AM
[2021-04-04 06:42] LABS: INR 1.1 (0.9-1.1); Partial Thromboplastin Ratio 1.2; Partial Thromboplastin Time 31.3 Seconds (21.0-31.0); Prothrombin Time 10.7 Seconds (9.0-12.0)
[2021-04-04 07:10] LABS: Alanine Aminotransferase 27 U/L (12-78); Albumin Level 3.8 gm/dl (3.4-5.0); Aspartate Aminotransferase 20 U/L (15-37); BUN Creatinine Ratio 11.5 (10-20); Blood Urea Nitrogen 13 mg/dl (7-18); Calcium 8.5 mg/dl (8.5-10.1); Carbon Dioxide 24 mmol/L (21-32); Chloride 105 mmol/L (98-107); Creatinine Clr Calc Pharmacy 104.4 ml/min; Est GFR (African American) 82.6 ml/min; Est GFR (Non-African American) 71.3 ml/min; Glucose 133 mg/dl (70-99); Magnesium 2.3 mg/dl (1.8-2.4); Potassium 4.3 mmol/L (3.5-5.1); Sodium 136 mmol/L (136-145)
[2021-04-04 07:12] LABS: Alkaline Phosphatase 80 U/L (45-117); Bilirubin,Total 1.5 mg/dl (0.2-1); Chol HDL Ratio 4; Cholesterol 200 mg/dl (0-200); Globulin 3.7 gm/dl (2.5-4.0); HDL Cholesterol 57 mg/dl; LDL Cholesterol Calculated 126 mg/dl; Total Protein 7.5 gm/dl (6.4-8.2); Triglycerides 87 mg/dl (0-150); Troponin I < 0.015 ng/ml (0-0.045); VLDL Cholesterol 17 mg/dl
--- NOTE | 2021-04-04 07:48 | Magnetic Resonance Report ---
MRI OF THE BRAIN WITHOUT IV CONTRAST CLINICAL HISTORY: Right upper extremity weakness. Slurred speech. COMPARISON STUDY: CT of the brain dated 04/03/2021. TECHNIQUE: MRI of the brain was performed utilizing various T1 and T2-weighted sequences in the axial , sagittal, and coronal planes. IV contrast was not administered for this examination. FINDINGS: Brain parenchyma: There are numerous tiny foci of restricted diffusion seen within the high left post erior frontal and parietal cortex. There is also a small focus of restricted diffusion in the left oc cipital cortex. These are consistent with acute to subacute infarcts. No additional foci of restricte d diffusion are identified. There is no hemorrhage or mass effect. There is age-related involutional change noting mild subcortical microangiopathic disease. No extra-axial fluid collection is seen. The cerebellar tonsils are normal in configuration. Ventricles, sulci, and cisterns: Prominent secondary to involutional change. Pituitary and sella: Unremarkable. Intracranial vasculature: Normal flow voids are maintained at the skull base. Orbits: The bony orbits are grossly intact. Orbital contents are normal in appearance. Sinuses and mastoids: A 2 cm retention cyst is noted in the right maxillary antrum. The remaining par anasal sinuses are clear. The mastoid air cells are well pneumatized. Calvarium: Unremarkable. Cervical cord: Partially visualized cervical spinal cord is normal in morphology and signal intensity . IMPRESSION: 1. There are numerous small foci of restricted diffusion in the high left posterior frontal and parie kings cortex, as well as a subcentimeter focus of restricted diffusion in the left occipital cortex. Th eulalio are consistent with acute to subacute infarcts, in the distribution suggests an embolic phenomeno n. 2. There is no hemorrhage or mass effect. ACT 112: Negative or not required by law. Electronically signed by: Felton Toussaint M.D. 04/04/2021 7:47 AM
[2021-04-04] MEDS ORDERED: hydrALAZINE HCL 20 MG/ML VIAL IV STA (08:09)
[2021-04-04] MEDS: ASPIRIN 81 MG CHEW PO SCH (08:36)
--- NOTE | 2021-04-04 09:18 | Neurology Consultation ---
Date of Consultation April 04, 2021 Assessment & Plan (1) Cardioembolic stroke: (2) Internal carotid artery stenosis: (3) Atrial fibrillation: Acute to subacute appearing multifocal cardioembolic infarcts within the left cerebral hemisphere occurring in the context of atrial fibrillation and moderate stenosis of the left internal carotid artery. Patient does not follow with a primary care provider regularly and is not on any prescription medications or aspirin therapy as an outpatient. He does have morbid obesity, polycythemia, and also presents with hypertension, in addition to atrial fibrillation and acute embolic stroke as above. He continues to exhibit neurologic deficits related to his multifocal left cerebral hemispheric infarcts including a moderate expressive aphasia and distal weakness for the right upper extremity. He does not have a gross visual field deficit with confrontation testing and does not have a gross facial droop. His distal right upper extremity weakness primarily affects the hand and wrist musculature and would be related to multifocal largely cortical left cerebral hemispheric infarcts within the motor cortex, but sparing the face. The 40% stenosis of the left internal carotid artery would not likely be clinically significant. Patient has been started on daily low-dose aspirin, I agree with this medication at this time. I would also suggest starting a statin given evidence of moderate stenosis of the left internal carotid artery. The left ICA stenosis will need periodic monitoring going forward. Also, as patient does have atrial fibrillation and a probable cardioembolic infarct to the left cerebral hemisphere, would recommend anticoagulation. Cardiology has been consulted. Systolic blood pressure goal 140 to 160 mmHg. Avoid aggressive lowering of blood pressure. PT/OT/speech therapy. History of Present Illness Reason for Consultation: Stroke Requesting Physician: Say Junior MD Attending Physician: Jeevan Browning MD History of Present Illness The patient is a 60-year-old male who presented to the emergency department yesterday with a chief complaint of right upper extremity weakness and difficulty speaking. He had noted right upper extremity numbness the previous day. Past medical history is largely unknown as he does not follow with a physician regularly although he is morbidly obese and has psoriasis. He has been notably hypertensive, presenting with a blood pressure of 209/118. A blood glucose is mildly elevated, hemoglobin A1c pending. Transaminases normal. Because symptom onset was greater than 24 hours he was not considered a true stroke alert and was not considered a candidate for TPA. Neuro imaging has been completed including CT of the head, CT angiography of the head and neck, and brain MRI. I did review the images as well as the radiologist's interpretation of these tests. CT of the head unremarkable, no evidence of hemorrhage or acute infarct. CTA of the neck revealed moderate atherosclerotic plaque within the proximal left internal carotid artery resulting in 40% stenosis. Mild plaque within the proximal right internal carotid artery without significant stenosis. CTA of the head revealed severe multifocal stenoses within the bilateral po sterior cerebral arteries and was otherwise unremarkable. MRI of the brain revealed numerous small foci of restricted diffusion in the high left posterior frontal and parietal cortex as well as a subcentimeter focus of restricted diffusion in the left occipital cortex consistent with acute to subacute infarcts, distribution suggest embolic phenomenon. No hemorrhage or mass- effect. Atrial fibrillation has been identified on an ECG completed yesterday and today. This morning, the patient continues to have a moderate expressive aphasia, language comprehension appears to be intact. He has flaccid weakness of the distal right upper extremity. Symptoms have been persistent. Allergies Allergy/AdvReac Type Severity Reaction Status Date / Time No Known Allergies Allergy Unverified 04/03/21 21:46 Home Medications Medication Instructions Recorded Confirmed Type cholecalciferol (vitamin D3) 25 0 mcg PO DAILY 04/03/21 04/03/21 History mcg (1,000 unit) tablet (Vitamin D3) ibuprofen 200 mg tablet 400 mg PO Q6H PRN 04/03/21 04/03/21 History multivitamin 1 tab PO DAILY 04/03/21 04/03/21 History Patient History Medical History (Updated 04/04/21 @ 09:08 by Herber Shirley MD) Morbid obesity Social History Smoking Status: Former smoker Hx Alcohol Use: Yes Alcohol type: beer Hx Substance Use: No Preferred Language: Kinyarwanda Communication Ability: Effective Twister Doffer Required: No Beliefs That Will Affect Care: None Current Living Situation: Alone Other Information That Helps Us Care for You: No Feels Safe at Home: Yes Safety Concerns: Feels Safe At This Time Assistive Devices: Glasses, Hearing Aid - Left and Hearing Aid - Right Review of Systems Constitutional: no fever and no chills Eyes: no blind spots and no diplopia Ear, Nose, Mouth, Throat: no ear pain and no hearing loss Respiratory: no cough and no dyspnea Cardiovascular: no chest pain and no palpitations Gastrointestinal: no constipation and no diarrhea/loose stools Genitourinary: no urinary incontinence or no urinary urgency Musculoskeletal: no muscle weakness and no muscle atrophy Integumentary: no rash and no lesions Neurologic: as per Subjective / HPI, + localized weakness, + loss of sensation and + abnormal speech; no gait abnormality, no tremor(s), no seizure-like activity and no headache(s) Psychiatric: no behavioral changes, no depression, no abnormal sleep pattern and no anxiety Hematologic / Lymphatic: no easy bruising and no lymphadenopathy Exam (Neuro) Constitutional: well developed and well nourished; no acute distress Eyes: normal visual morgan by confrontation, PERRL, normal accommodation and EOM intact bilaterally; no fundoscopic abnormality, no nystagmus and no papilledema Cardiovascular: Vessels: normal carotid upstroke; no carotid bruit Neurologic: Oriented to:: Person, Place and Time Memory: Short Term Intact and Remote Intact Attention: Span Intact and Concentration Intact Language: negative Naming Objects or Repeating Phrases Speech Fluency: Dysarthria and Dysfluency Speech Aphasia: Aphasia Fund of Knowledge: Vocabulary Cranial Nerves: Normal II (Visual morgan full to confrontation, visual acuity normal), III, IV, (Pupils equal round reactive to light and accommodation, eye movements normal), V (Facial sensation intact), VII (There is no facial droop or weakness), VIII (Hearing intact), IX, X (Palate elevates to midline), XI (Shoulder shrug intact) and XII (Tongue protrudes to midline) Motor Strength: Normal Lower Extremities; negative Normal Upper Extremities (Flaccid weakness right hand noted) or Pronator Drift Motor Tone: Normal Lower Extremities and Normal Upper Extremities Muscle Bulk/Involuntary Movements: No Involuntary Movements; negative Muscle Atrophy Sensation: Light Touch Intact, Pain/Temperature Intact, Vibration Intact and Proprioception Intact Coordination: Normal and Finger-Nose Abnormal Laterality: Right; negative Heel-Dey Abnormal Deep Tendon Reflexes: Rt Triceps: 1+, Lt Triceps: 1+, Rt Biceps: 1+, Lt Biceps: 1+, Rt Brachioradialis: 1+, Lt Brachioradialis: 1+, Rt Patellar: 1+, Lt Patellar: 1+, Rt Ankle: 0 and Lt Ankle: 0 Special Tests: negative Babinski Present Details: Gait cannot be tested in context of patient's current neurological/medical status. Results & Data ([facility]) Vital Signs (Past 12 Hours) Vital Signs Temp Pulse Pulse Resp BP BP BP 04/04/21 08:35 88 187/118 H 04/04/21 08:22 88 187/118 H 161/95 H 04/04/21 07:19 36.6 C 89 20 202/122 H 04/04/21 03:34 36.5 C 97 H 18 216/143 H 04/04/21 00:16 36.4 C L 92 H 18 187/108 H 04/04/21 00:00 04/03/21 23:30 80 20 170/99 H 04/03/21 23:10 84 21 04/03/21 23:00 88 25 H 04/03/21 22:50 99 H 24 04/03/21 22:40 84 17 04/03/21 22:30 89 22 04/03/21 22:27 87 21 04/03/21 22:04 89 24 172/108 H 04/03/21 22:01 83 28 H 172/108 H 04/03/21 21:49 83 24 170/103 H 04/03/21 21:47 99 H 22 04/03/21 21:33 81 24 172/110 H 04/03/21 21:31 87 23 172/110 H 04/03/21 21:28 94 H 86 23 204/135 H 204/135 H 04/03/21 21:10 103 H 100 H 25 H 215/111 H 215/111 H Pulse Ox 04/04/21 08:35 04/04/21 08:22 04/04/21 07:19 96 04/04/21 03:34 96 04/04/21 00:16 95 04/04/21 00:00 98 04/03/21 23:30 98 04/03/21 23:10 95 04/03/21 23:00 94 04/03/21 22:50 95 04/03/21 22:40 95 04/03/21 22:30 95 04/03/21 22:27 95 04/03/21 22:04 95 04/03/21 22:01 94 04/03/21 21:49 94 04/03/21 21:47 94 04/03/21 21:33 92 04/03/21 21:31 93 04/03/21 21:28 94 04/03/21 21:10 94 Laboratory Results WBC 11.51, hemoglobin 17.9, hematocrit 53.0, platelet count 240, sodium 136, potassium 4.3, BUN 13, creatinine 1.11, glucose 133, calcium 8.5, magnesium 2.3, AST 20, ALT 27, troponin less than 0.015, triglycerides 87, cholesterol 200, LDL 126, VLDL 17, HDL 57, SARS-CoV-[address] of the head, CT angiography of the head and neck, and brain MRI are as desc ribed in the history of present illness. I reviewed the images as well as the radiologist's interpretation of these tests. Electrocardiography has revealed atrial fibrillation. Coding Level of Care Code 46165 Initial In Care Lvl 3 Diagnoses Cardioembolic stroke I63.9 Internal carotid artery stenosis I65.29 Atrial fibrillation I48.91 Atrial fibrillation type: unspecified (1) Atrial fibrillation Atrial fibrillation type: unspecified Qualified Code(s): I48.91 - Unspecified atrial fibrillation
[2021-04-04 09:42] LABS: Partial Thromboplastin Ratio 1.2; Partial Thromboplastin Time 30.5 Seconds (21.0-31.0)
[2021-04-04] MEDS ORDERED: HEPARIN SOD (PORCINE) 1000 UNIT/ML IV ONE (10:59)
--- NOTE | 2021-04-04 12:48 | XCELERA ---
[id number]
--- NOTE | 2021-04-04 13:07 | Cardiology Consultation ---
Date of Consultation April 04, 2021 Assessment & Plan (1) Cardioembolic stroke: (2) Atrial fibrillation: (3) Internal carotid artery stenosis: (4) Hypertension: (5) Morbid obesity: 1. CVA: He presents with a relatively acute CVA, this appears to be most likely cardioembolic although he does have some carotid disease. 2. Atrial fibrillation: He presents in atrial fibrillation of unknown duration. He thinks he may have had a change in exercise ability 2 years ago but that is not specific enough to pinpoint his arrhythmia. Since he does not see physicians it could be of long duration or brief. I would recommend rate control (which is fairly good now), anticoagulation (he is currently on heparin I will switch that to Eliquis) with follow-up office visit in around a month with thoughts of cardioversion at least as a trial. If he has been in it a long time we may not be able to do that but his left atrium is of normal size on echo. 3. Carotid artery stenosis: He does have carotid stenosis although it is probably not a part of his presentation but he should be treated with platelet inhibitors and cholesterol medications. 4. Hypertension: He remains significantly hypertensive, I agree with adding an KEITH inhibitor to his regimen and I am going to go up on his beta-leah. 5. Obesity: Atrial fibrillation is associated with obesity, losing weight may or may not help with the long-term control of his atrial fibrillation. History of Present Illness Reason for Consultation: Atrial fibrillation Attending Physician: Jeevan Browning MD History of Present Illness This is a 60-year-old obese male who has not seen a physician for many years. He presented to the emergency room on April 03, 2021 describing right upper extremity weakness and difficulty speaking. The symptoms actually started the day before. He did not have any palpitations or cardiovascular symptoms. Evaluation in the emergency room included a CT angiogram showing atherosclerosis in the left carotid it was suggested that he start on anticoagulation as well as but no obstruction to flow, he was however in atrial fibrillation with a heart rate around 100 bpm. He did have identification of multifocal left cerebral infarcts. He was therefore admitted, started on heparin as well as metoprolol for rate control. He has been seen by neurology who felt it was a cardioembolic stroke. Treatment of blood pressure and a statin as well as aspirin. Today he still denies any sensation of palpitations, when asked about a change in exercise ability he says he might of noticed that several years ago but nothing recent. He still has some difficulty speaking and some right arm weakness. Allergies Allergy/AdvReac Type Severity Reaction Status Date / Time No Known Allergies Allergy Unverified 04/03/21 21:46 Home Medications Medication Instructions Recorded Confirmed Type cholecalciferol (vitamin D3) 25 0 mcg PO DAILY 04/03/21 04/03/21 History mcg (1,000 unit) tablet (Vitamin D3) ibuprofen 200 mg tablet 400 mg PO Q6H PRN 04/03/21 04/03/21 History multivitamin 1 tab PO DAILY 04/03/21 04/03/21 History Patient History Medical History Morbid obesity Social History Smoking Status: Former smoker Hx Alcohol Use: Yes Alcohol type: beer Hx Substance Use: No Preferred Language: Cymro Communication Ability: Effective Conventions Assistant Required: No Beliefs That Will Affect Care: None Current Living Situation: Alone Other Information That Helps Us Care for You: No Feels Safe at Home: Yes Safety Concerns: Feels Safe At This Time Assistive Devices: Glasses Physical Exam Physical Exam: Constitutional: Alert, cooperative and in no distress. HEENT: Unremarkable Neck: No jugular venous distention, carotid pulses are irregular but otherwise normal and equal bilaterally without bruits. Pulmonary: Clear to auscultation bilaterally. Cardiac: Irregular rhythm with no murmur, gallop or rub. Abdomen: Soft, nontender with normal bowel sounds. Extremities: No edema. Distal pulses intact. Neurologic: His speech is a little hard to understand, he does have right arm weakness. Gait was not evaluated. Skin: No rash, ecchymoses or petechiae. Results & Data ([facility]) Vital Signs (Past 12 Hours) Vital Signs Temp Pulse Pulse Resp BP BP BP 04/04/21 12:17 72 185/139 H 04/04/21 11:06 37.0 C 72 20 185/139 H 04/04/21 09:10 85 18 182/115 H 168/107 H 04/04/21 08:35 88 187/118 H 04/04/21 08:22 88 187/118 H 161/95 H 04/04/21 07:19 36.6 C 89 20 202/122 H 04/04/21 03:34 36.5 C 97 H 18 216/143 H Pulse Ox 04/04/21 12:17 04/04/21 11:06 97 04/04/21 09:10 04/04/21 08:35 04/04/21 08:22 04/04/21 07:19 96 04/04/21 03:34 96 Laboratory Results Cardiac Enzymes 04/03/21 04/03/21 04/04/21 Range/Units 19:46 20:39 05:35 AST 23 20 (15-37) U/L Troponin I < 0.015 < 0.015 (0-0.045) ng/ml Coagulation 04/03/21 04/03/21 04/04/21 Range/Units 19:46 20:39 05:35 PT Cancelled 10.4 10.7 APTT Cancelled 25.9 31.3 H 04/04/21 Range/Units 09:22 PT APTT 30.5 Lipids 04/04/21 Range/Units 05:35 Triglycerides 87 (0-150) mg/dl Cholesterol 200 (0-200) mg/dl HDL Cholesterol 57 mg/dl Cholesterol/HDL Ratio 4 CBC 04/03/21 04/04/21 Range/Units 19:46 05:35 WBC 11.85 H 11.51 H (4.8-10.8) K/uL RBC 5.52 5.40 (4.7-6.1) M/uL Hgb 18.3 H 17.9 (14.0-18.0) g/dL Hct 54.6 H 53.0 H (42-52) % Plt Count 255 240 (130-400) K/uL Neut # (Auto) 9.40 H 8.26 H (1.4-6.5) K/uL Lymph # (Auto) 1.16 L 1.71 (1.2-3.4) K/uL Ripley # (Auto) 1.19 H 1.36 H (0.11-0.59) K/uL Eos # (Auto) 0.04 0.11 (0-0.5) K/uL Baso # (Auto) 0.04 0.05 (0-0.2) K/uL Comprehensive Metabolic Panel 04/03/21 04/03/2104/04/21 Range/Units 19:46 20:39 05:35 Sodium 136 136 (136-145) mmol/L Potassium 4.3 4.3 (3.5-5.1) mmol/L Chloride 105 105 (98-107) mmol/L Carbon Dioxide 22 24 (21-32) mmol/L BUN 14 13 (7-18) mg/dl Creatinine 1.20 1.11 (0.6-1.4) mg/dl Glucose 131 H 133 H (70-99) mg/dl Calcium 9.3 8.5 (8.5-10.1) mg/dl AST 23 20 (15-37) U/L ALT 32 27 (12-78) U/L Alkaline Phosphatase 85 80 (45-117) U/L Total Protein 8.0 7.5 (6.4-8.2) gm/dl Albumin 4.0 3.8 (3.4-5.0) gm/dl Intake and Output 04/03/21 04/04/21 04/04/21 22:59 06:59 14:59 Intake Total 136.667 / 136.667 Balance 136.667 / 136.667 Intake: IV 136.667 / 136.667 Heparin Sodium/Dextrose 25,000 136.667 / 136.667 units In 500 ml @ 1,000 UNITS/ HR 20 mls/hr IV .Q24H [facility] Rx#: [id number] Other: Other Intake Source sips Weight 152 kg 144.3 kg Weight Measurement Method Chair Scale Built in [facility] Diagnostic Findings Telemetry: Atrial fibrillation, initially his heart rate was somewhat fast however it has been running 80-90 since admission. Echocardiogram: Normal left ventricular function. The left atrium is normal in size. Electrocardiogram: Atrial fibrillation, no acute changes. PG Care Time/CCT Total # of Minutes Spent Total Time Spent with Patient: Total time spent is greater than 50% in coordination of care (as documented) at patient's floor/unit and/or counseling patient: Coding Level of Care Code 72941 Office/OBS Consult Lvl 4 Diagnoses Atrial fibrillation I48.91 Atrial fibrillation type: unspecified Morbid obesity E66.01 Hypertension I10 Cardioembolic stroke I63.9 Internal carotid artery stenosis I65.29 (1) Atrial fibrillation Atrial fibrillation type: unspecified Qualified Code(s): I48.91 - Unspecified atrial fibrillation
[2021-04-04] MEDS: METOPROLOL SUCC 50MG EXT REL TAB PO SCH (14:54)
[2021-04-04] MEDS: lisinopril 10 MG TAB PO SCH (14:54)
--- NOTE | 2021-04-04 15:09 | Hospitalist Progress Note ---
Date of Service April 04, 2021 Assessment & Plan (1) Cardioembolic stroke: Plan: Attending: Dr. Browning Impression: 60-year-old male who was not received medical care for least 12 years. 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 Morbidly obese with a BMI of 42 kg/m. Presented with right-sided weakness and found to have acute CVA. Does not appear to have any cognitive loss. Was started on heparin dose. This was reviewed by a neurology and is appropriate. MRI of the brain with no hemorrhage or mass-effect. PT/OT evaluations and treatment ordered. Patient was not a candidate for TPA Received aspirin and currently is anticoagulated with heparin for ongoing atrial fibrillation Neurology consulted. Appreciate their input Continue current treatment with physical therapy and Occupational Therapy and watch for any cognitive or physical changes while patient is on heparin Patient should be discharged on Eliquis or another DOAC. We will wait to start this until tomorrow. (2) Internal carotid artery stenosis: Plan: There is ~40% stenosis of the proximal left internal carotid artery. Mild plaque within the proximal right internal carotid artery without significant stenosis After patient recovers from acute CVA, [facility] Patient should be placed on statin as an outpatient and establish with a PCP (3) Hypertension: Plan: Patient started on metoprolol tartrate for atrial fibrillation We will also start patient on lisinopril 10 mg p.o. daily Cardiology consulted. Appreciate Dr. Estrada's input (4) Polycythemia: Plan: Hemoglobin 17.9, hematocrit 53% We will treat underlying causes including morbid obesity and probable apnea seco ndary to obesity hypoventilation syndrome Outpatient management once established with a PCP (5) Hyperbilirubinemia: Plan: Patient with regular alcohol consumption LFTs within normal limits Outpatient management Differential includes Gilbert's disease (6) Morbid obesity: Plan: BMI 42.0 kg/m Discussed need for weight loss with the patient May benefit from polysomnography and treatment for presumed obesity hypoventilation syndrome with overlap obstructive sleep apnea (7) Atrial fibrillation: Plan: Continue beta-blockade Continue heparin drip Convert to Eliquis before discharge Outpatient management with cardiology (8) DVT prophylaxis: Plan: Currently on a heparin drip Convert to Eliquis prior to discharge Encourage ambulation as tolerated Admission and Anticipated Discharge Date Admission Date: April 03, 2021 Supervising Physician Co-Signing Physician Notes Patient seen and examined, chart reviewed, case discussed with JAKUB Ruano and I agree with the assessment and plan as above except as otherwise noted below. All labs and images reviewed 60yo M with no recent PCP care who presented with RUE weakness and dysarthria and who is found to have "numerous small foci of restricted diffusion in the high left posterior frontal and parietal cortex, as well as a subcentimeter focus of restricted diffusion in the left occipital cortex. These are consistent with acute to subacute infarcts, in the distribution suggests an embolic phenomenon" in the setting of Afib. TTE shows 55-60% EF/normal LVSF, no regional abnormalities. Continue anticoagulation, heparin transition to apixaban. ASA daily. Continue BB for rate control. Recommend outpt sleep study for f/u of polycythemia ?[facility] as outpatient. Subjective Attending: Dr. Browning Patient seen and examined at bedside in room 230 bed 1. Patient admitted for acute CVA with cardioembolic stroke. Patient has not seen a physician for approximately 12 years. He is in atrial fibrillation. He denies awareness of any tachyarrhythmia. He denies any headache. He has no chest pain or tightness. He continues with weakness on the right side but with improvement of his right leg and foot and right upper arm. Continues to have difficulty with his right hand. Persistent pronator drift on examination. Patient denies any visual disturbances including double vision, blurriness, loss of sight. The patient has no other acute complaints at this time. Review of Systems Review of Systems: All systems reviewed & are unremarkable except as noted in Subjective Physical Exam Physical Exam: GENERAL : No acute distress. Some trouble with word finding but able to communicate clearly. Minimal slurred speech. EYES: No icterus, gaze conjugate. Pupils equal round and reactive to light NOSE: No evidence of epistaxis. MOUTH: No lesions or candidiasis. Slight facial droop on the right side. Tongue is midline. NECK: Supple. Positive for carotid bruits LUNGS: CTA B/L, no wheezes, rales or rhonchi HEART: Irregular, irregular with a rate of 85 bpm ABDOMEN: Soft, NT, ND, BS Present EXTREMITIES: No LE edema, pedal pulses intact and equal bilaterally NEURO: A&OX3. Pupils equal round react to light. Right-sided weakness. More pronounced in the right hand. No hyperreflexia. Gait and Romberg deferred at this time. Slight slurring speech but coherent in conversation. Results & Data Results & Data ([facility]) Vital Signs (Past 12 Hours) Vital Signs Temp Pulse Pulse Resp BP BP BP 04/04/21 14:53 36.7 C 96 H 18 148/103 H 161/93 H 04/04/21 12:17 72 185/139 H 04/04/21 11:06 37.0 C 72 20 185/139 H 04/04/21 09:10 85 18 182/115 H 168/107 H 04/04/21 08:35 88 187/118 H 04/04/21 08:22 88 187/118 H 161/95 H 04/04/21 07:19 36.6 C 89 20 202/122 H 04/04/21 03:34 36.5 C 97 H 18 216/143 H Pulse Ox 04/04/21 14:53 96 04/04/21 12:17 04/04/21 11:06 97 04/04/21 09:10 04/04/21 08:35 04/04/21 08:22 04/04/21 07:19 96 04/04/21 03:34 96 Laboratory Results 04/04/21 05:35 04/04/21 05:35 Diagnostic Findings Chest X-Ray 04/03/21 20:18 XR chest 1V portable CLINICAL HISTORY: Stroke Like Symptoms COMPARISON STUDY: No previous studies for comparison. FINDINGS: No pneumothorax. No pleural effusion. Reticular nodular opacities are seen in bilateral lower lungs with mild airspace component on the right and might represent pneumonia or pulmonary edema. Cardiomediastinal silhouette is mildly enlarged. Right paratracheal stripe is slightly widened . Azygos silhouette is enlarged. No significant pulmonary vascular congestion.. Osseous structures: Degenerative changes of the spine. IMPRESSION: 1. Mild cardiomegaly. Pulmonary edema. Differential diagnosis also include pneumonia. ACT 112: Negative or not required by law. The above report was generated using voice recognition software. It may contain grammatical, syntax or spelling errors. Electronically signed by: Nicole Johnson DO 04/04/2021 6:31 AM Brain MRI 04/03/21 21:43 MRI OF THE BRAIN WITHOUT IV CONTRAST CLINICAL HISTORY: Right upper extremity weakness. Slurred speech. COMPARISON STUDY: CT of the brain dated 04/03/2021. TECHNIQUE: MRI of the brain was performed utilizing various T1 and T2-weighted sequences in the axial, sagittal, and coronal planes. IV contrast was not administered for this examination. FINDINGS: Brain parenchyma: There are numerous tiny foci of restricted diffusion seen within the high left posterior frontal and parietal cortex. There is also a small focus of restricted diffusion in the left occipital cortex. These are consistent with acute to subacute infarcts. No additional foci of restricted diffusion are identified. There is no hemorrhage or mass effect. There is age-related involutional change noting mild subcortical microangiopathic disease. No extra-axial fluid collection is seen. The cerebellar tonsils are normal in configuration. Ventricles, sulci, and cisterns: Prominent secondary to involutional change. Pituitary and sella: Unremarkable. Intracranial vasculature: Normal flow voids are maintained at the skull base. Orbits: The bony orbits are grossly intact. Orbital contents are normal in appearance. Sinuses and mastoids: A 2 cm retention cyst is noted in the right maxillary antrum. The remaining paranasal sinuses are clear. The mastoid air cells are well pneumatized. Calvarium: Unremarkable. Cervical cord: Partially visualized cervical spinal cord is normal in morphology and signal intensity. IMPRESSION: 1. There are numerous small foci of restricted diffusion in the high left posterior frontal and parietal cortex, as well as a subcentimeter focus of restricted diffusion in the left occipital cortex. These are consistent with acute to subacute infarcts, in the distribution suggests an embolic phenomenon. 2. There is no hemorrhage or mass effect. ACT 112: Negative or not required by law. Electronically signed by: Felton Toussaint M.D. 04/04/2021 7:47 AM PG Care Time/CCT Total # of Minutes Spent Total Time Spent with Patient: Total time spent is greater than 50% in coordination of care (as documented) at patient's floor/unit and/or counseling patient: Coding Level of Care Code 18420 Subseq Hosp Care Lvl 2 Diagnoses Cardioembolic stroke I63.9 Internal carotid artery stenosis I65.29 Hypertension I10 Polycythemia D75.1 Hyperbilirubinemia E80.6 Morbid obesity E66.01 Atrial fibrillation I48.91 Atrial fibrillation type: unspecified DVT prophylaxis Z29.9 (1) Atrial fibrillation Atrial fibrillation type: unspecified Qualified Code(s): I48.91 - Unspecified atrial fibrillation
[2021-04-04] MEDS ORDERED: METOPROLOL TARTRATE 50 MG TAB PO SCH (17:30)
[2021-04-04 18:59] LABS: Partial Thromboplastin Ratio 1.5; Partial Thromboplastin Time 39.6 Seconds (21.0-31.0)
--- NOTE | 2021-04-04 20:33 | Electrocardiogram Report ---
Test Reason : Blood Pressure : / mmHG Vent. Rate : 101 BPM Atrial Rate : 357 BPM P-R Int : 000 ms QRS Dur : 072 ms QT Int : 334 ms P-R-T Axes : 000 004 063 degrees QTc Int : 433 ms Poor data quality, interpretation may be adversely affected Atrial fibrillation with rapid ventricular response Nonspecific ST abnormality Abnormal ECG No previous ECGs available Confirmed by Hunter Estrada ([id number]) on 04/04/2021 8:32:58 PM Referred By: REFERRED SELF Confirmed By:Hunter Estrada
--- NOTE | 2021-04-04 20:39 | Electrocardiogram Report ---
Test Reason : Blood Pressure : / mmHG Vent. Rate : 088 BPM Atrial Rate : 087 BPM P-R Int : 000 ms QRS Dur : 088 ms QT Int : 366 ms P-R-T Axes : 000 019 052 degrees QTc Int : 442 ms Atrial fibrillation Abnormal ECG When compared with ECG of 03-APR-2021 20:47, (unconfirmed) No significant change was found Confirmed by Hunter Estrada ([id number]) on 04/04/2021 8:39:22 PM Referred By: REFERRED SELF Confirmed By:Hunter Estrada
[2021-04-04] MEDS: APIXABAN 5 MG TABLET PO SCH (21:16)
[2021-04-05 07:03] LABS: Basophils # (auto) 0.05 K/uL (0-0.2); Basophils % (auto) 0.5 %; Eosinophils # (auto) 0.14 K/uL (0-0.5); Eosinophils % (auto) 1.4 %; Hematocrit (blood only) 53.3 % (42-52); Hemoglobin 17.4 g/dL (14.0-18.0); Immature Granulocytes # (auto) 0.02 K/uL (0.00-0.02); Immature Granulocytes % (auto) 0.2 %; Lymphocytes # (auto) 1.26 K/uL (1.2-3.4); Lymphocytes % (auto) 12.6 %; Mean Corpuscular Hemoglobin 32.8 pg (25-34); Mean Corpuscular Hgb Conc 32.6 g/dL (32-36); Mean Corpuscular Volume 100.6 fL (80-100); Mean Platelet Volume 10.6 fL (7.4-10.4); Monocytes # (auto) 1.41 K/uL (0.11-0.59); Monocytes % (auto) 14.1 %; Neutrophils # (auto) 7.13 K/uL (1.4-6.5); Neutrophils % (auto) 71.2 %; Platelet Count 251 K/uL (130-400); RDW Coefficient of Variation 13.7 % (11.5-14.5); RDW Standard Deviation 50.6 fL (36.4-46.3); White Blood Count 10.01 K/uL (4.8-10.8)
[2021-04-05 07:17] LABS: Partial Thromboplastin Time 27.4 Seconds (21.0-31.0); Prothrombin Time 10.6 Seconds (9.0-12.0)
[2021-04-05] MEDS: Heparin IV Adult Wt-Based Low-Dose *NO* Bolus Protocol IV SCH ×2 (07:17→07:31)
[2021-04-05 07:32] LABS: Estimated Average Glucose 134 mg/dl; Hemoglobin A1C 6.3 % (4.5-5.6)
[2021-04-05 07:33] LABS: Albumin Level 3.5 gm/dl (3.4-5.0); BUN Creatinine Ratio 14.5 (10-20); Calcium 8.9 mg/dl (8.5-10.1); Creatinine Clr Calc Pharmacy 110.8 ml/min; Est GFR (African American) 89.4 ml/min; Est GFR (Non-African American) 77.1 ml/min; Magnesium 2.8 mg/dl (1.8-2.4); Potassium 4.4 mmol/L (3.5-5.1)
[2021-04-05 07:35] LABS: Albumin Globulin Ratio 0.9 (0.9-2); Bilirubin,Total 1.5 mg/dl (0.2-1); Globulin 3.8 gm/dl (2.5-4.0); Total Protein 7.3 gm/dl (6.4-8.2)
--- NOTE | 2021-04-05 08:31 | Electrocardiogram Report ---
Test Reason : Blood Pressure : / mmHG Vent. Rate : 076 BPM Atrial Rate : 067 BPM P-R Int : 000 ms QRS Dur : 088 ms QT Int : 372 ms P-R-T Axes : 000 057 059 degrees QTc Int : 418 ms Atrial fibrillation Abnormal ECG When compared with ECG of 04-APR-2021 06:29, No significant change was found Confirmed by Koby Khoury ([id number]) on 04/05/2021 8:31:08 AM Referred By: REFERRED SELF Confirmed By:Koby Khoury
[2021-04-05] MEDS: METOPROLOL SUCC 50MG EXT REL TAB PO SCH (08:40)
[2021-04-05] MEDS: ASPIRIN 81 MG CHEW PO SCH (08:43)
[2021-04-05] MEDS: lisinopril 10 MG TAB PO SCH (08:44)
[2021-04-05] MEDS: APIXABAN 5 MG TABLET PO SCH ×2 (08:46→20:08)
--- NOTE | 2021-04-05 12:08 | Neurology Progress Note ---
Date of Service April 05, 2021 Assessment & Plan (1) Cardioembolic stroke: (2) Internal carotid artery stenosis: (3) Atrial fibrillation: Plan: Patient had the onset of difficulty speaking and right upper extremity weakness evening of April 03. MRI showed multiple acute to subacute acute white matter changes in the posterior left parietal head region, consistent with cardioembolic infarcts. these embolic strokes occurredg in the context of atrial fibrillation and moderate stenosis of the left internal carotid artery. he continues to have neurologic deficits. He is on Eliquis and 81 mg aspirin. The aspirin is helpful for small vessel ischemic disease in addition the patient has morbid obesity, polycythemia, and hypertension. recommendations: 1. continue 81 mg aspirin tablet daily. 2. Continue with Eliquis 5 mg twice a day. 3. Continue physical, occupational, and speech therapy. 4. control blood pressure as you are doing, aiming for a mean arterial pressure of approximately 100. 5. hemoglobin A1c was 6.3. Control glucose is aiming for hemoglobin A1c of 6.0 if possible. 6. patient could be initiated on a statin, and he would be a high-dose statin candidate. Overall, I spent a total of 35 minutes with this case including review of records, direct evaluation the patient at bedside, and discussion of the case with Dr. Olmstead including differential diagnosis and treatment options. Admission and Anticipated Discharge Date Admission Date: April 03, 2021 Subjective patient feels like his right upper extremity weakness "comes and goes". Actually when talking further it is always there but it might feel like it waxes and wanes some. He does not have pain. He continues to have expressive aphasia. He has no leg weakness. Results & Data ([facility]) Vital Signs (Past 12 Hours) Vital Signs Temp Pulse Pulse Resp BP BP Pulse Ox 04/05/21 11:00 97 04/05/21 10:09 78 04/05/21 06:21 37.1 C 82 21 154/108 H 94 04/05/21 04:35 37.2 C 68 166/94 H 97 Exam (Neuro) Physical Exam: He is awake and alert. He has some expressive aphasia. He follows one-step commands well. He has drift and weakness of the right upper extremity being 4/5 Diffusely. left upper extremity and both legs are 5/5 diffusely. There is no facial droop. Extraocular eye muscles are intact without nystagmus. PG Care Time/CCT Total # of Minutes Spent Total Time Spent with Patient: Total time spent is greater than 50% in coordination of care (as documented) at patient's floor/unit and/or counseling patient: Coding Level of Care Code 23950 Subseq Hosp Care Lvl 3 Diagnoses Cardioembolic stroke I63.9 Internal carotid artery stenosis I65.29 Atrial fibrillation I48.91 Atrial fibrillation type: unspecified Time Spent (min) 35 (1) Atrial fibrillation Atrial fibrillation type: unspecified Qualified Code(s): I48.91 - Unspecified atrial fibrillation
[2021-04-05] MEDS ORDERED: LORazepam 1 MG TAB PO PRN (13:53)
[2021-04-05] MEDS ORDERED: THIAMINE HCL 100 MG/ML 2 ML VIAL IM STA (13:53)
[2021-04-05] MEDS ORDERED: GABAPENTIN 1200MG ALCOHOL WITHDRAWAL LOAD PO STA (13:53)
--- NOTE | 2021-04-05 14:13 | CT Scan Report ---
CT head/brain wo con Clinical Indication: [place] ^CVA. Technique: Contiguous axial CT images of the head were acquired from the base of the skull to the alisson irma without intravenous contrast administration. Images were viewed in brain, subdural and bone [facility]. Automated dose lowering techniques and/or adjustment according to patient size were utilized for this exam. Comparison: None available at the time of this dictation. Findings: Areas of decreased attenuation are present in the periventricular and subcortical white matter bilate rally consistent with small vessel ischemic disease. Generalized cerebral atrophy with commensurate e nlargement of the ventricles, sulci, and cisterns is also present. There is no acute intracranial hem orrhage or evidence of acute territorial infarction. No shift of the midline structures, mass effect, or extra-axial abnormalities are shown. Atherosclerotic calcifications are present in the intracran ial segments of the internal carotid arteries. Imaged portions of the paranasal sinuses and mastoid air cells are clear. The orbits appear normal. There are no acute fractures of the calvaria or scalp swelling. Impression: No acute intracranial hemorrhage, evidence of acute territorial infarction, or other acute intracrani al disease process. ACT 112: Negative or not required by law. Electronically signed by: Gilberto Phillips M.D. 04/05/2021 2:12 PM
[2021-04-05] MEDS ORDERED: GABAPENTIN 600 MG TAB PO ONE (14:30)
[2021-04-05] MEDS: THIAMINE HCL 100 MG TAB PO SCH (15:08)
[2021-04-05] MEDS: FOLIC ACID 1 MG TAB PO SCH (15:08)
--- NOTE | 2021-04-05 15:15 | Hospitalist Progress Note ---
Date of Service April 05, 2021 Assessment & Plan (1) Cardioembolic stroke: Plan: Attending: Dr. Browning Impression: 60-year-old male who was not received medical care for least 12 years. 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 Morbidly obese with a BMI of 42 kg/m. Presented with right-sided weakness and found to have acute CVA. Does not appear to have any cognitive loss. Was started on heparin dose. This was reviewed by a neurology and is appropriate. Converted to Eliquis twice daily yesterday. MRI of the brain with no hemorrhage or mass-effect. PT/OT evaluations and treatment ordered. Patient was seizure today. Loss of use of right arm. CT scan of the head without significant change. Upon return from CT lab, patient's function of his right arm has returned. Patient was not a candidate for TPA Received aspirin and currently is anticoagulated with Eliquis for ongoing atrial fibrillation Neurology consulted. Appreciate their input Continue current treatment with physical therapy and Occupational Therapy and watch for any cognitive or physical changes while patient is on anticoagulation CTA with no LVO but with severe multifocal stenoses of posterior circulation Patient should be discharged on Eliquis. -add on high intensity statin with atorvastatin 80mg daily -with prediabetes, A1C 6.3%--> needs dietary changes and weight loss (2) Seizure: Plan: Witnessed seizure by patient's RN Initial loss of function of right arm. This returned within an hour Question of alcohol withdrawal causing seizure with post ictal response Initiate AWSS as well as lorazepam, thiamine, folic acid Counseled on need to have abstinence from alcohol Neurology already involved secondary to CVA. Discussed with Dr. Dexter. EEG tomorrow Continue seizure precautions Continue to monitor on telemetry (3) Alcohol abuse: Plan: Patient admits to drinking 8-10 beers daily Last consumption 04/02/2021 Appears to be starting withdrawal We will initiate AWSS protocol including lorazepam, thiamine, folic acid, multivitamin Monitor on telemetry (4) Internal carotid artery stenosis: Plan: There is ~40% stenosis of the proximal left internal carotid artery. Mild plaque within the proximal right internal carotid artery without significant stenosis After patient recovers from acute CVA, recommend outpatient follow-up with vascular surgery for carotid stenosis management Patient should be placed on statin as above, started ASA (5) Hypertension: Plan: Improved with metoprolol succinate 50 mg p.o. daily and lisinopril 10 mg p.o. daily Continue to monitor on telemetry Cardiology consulted. Appreciate Dr. Estrada's input (6) Polycythemia: Plan: Hemoglobin 17.9, hematocrit 53% We will treat underlying causes including morbid obesity and probable apnea secondary to obesity hypoventilation syndrome Outpatient management once established with a PCP (7) Hyperbilirubinemia: Plan: Total bilirubin remains stable at 1.5 mg/Phan Patient with regular alcohol consumption LFTs within normal limits Outpatient management Differential includes Gilbert's disease (8) Morbid obesity: Plan: BMI 42.0 kg/m Discussed need for weight loss with the patient May benefit from polysomnography and treatment for presumed obesity hypoventilation syndrome with overlap obstructive sleep apnea (9) Atrial fibrillation: Plan: Newly diagnosed Continue beta-blockade Continue Eliquis on discharge Outpatient management with cardiology (10) DVT prophylaxis: Plan: Currently on Eliquis Encourage ambulation as tolerated Admission and Anticipated Discharge Date Admission Date: April 03, 2021 Supervising Physician Co-Signing Physician Notes PA Supervision Note: I personally saw and examined the patient. I verified all marcos points and agree with JAKUB Aggarwal with the following exceptions and/or additions: Pt had witnessed seizure this AM and code purple was called. I presented to the bedside with JAKUB Aggarwal. He had stopped seizing and was alert and awake but somewhat post-ictal. He had a flaccid right upper extremity. He was answering questions appropriately. CT head neg for hemorrhage Likely EtOH withdrawal seizure. Ativan prn, no gabapentin at this time. continue Eliquis, ASA, add statin continue to control BP Subjective Attending: Dr. Olmstead Patient seen and examined at bedside. He was doing well this morning. He was able do his exercises with his right arm. He had no headaches or visual changes. He felt as though the function of his arm would wax and wane according to the neurology note today. Was called to the room urgently for a code purple as the patient suddenly lost use of the right arm and then had witnessed seizure of the upper extremities which were bilateral. Physical examination at that time confirmed that patient had a flaccid right arm. Right lower extremity was functional with good strength and movement. Patient appeared in distress and had purple face and had. Oxygenation was fine. Blood pressure was elevated with a systolic pressure in the 180s. Patient was sent to the CT lab for stat CT of the head without contrast that showed no changes, no acute hemorrhage, no midline shift and no mass-effect. Upon return back to the room, patient's function of his arm was back similar to yesterday. Patient did complain of headache of 6 out of 10. Patient has no persistent complaints at this time. It should be noted the patient drinks between 8 and 10 beers daily. He reports his last drink was a day before admission. Review of Systems Review of Systems: All systems reviewed & are unremarkable except as noted in Subjective Physical Exam Physical Exam: GENERAL : Patient appears in acute distress. EYES: No icterus, gaze conjugate. Pupils equal round and reactive to light NOSE: No evidence of epistaxis MOUTH: No lesions or candidiasis. Tongue is midline. NECK: Supple LUNGS: CTA B/L, no wheezes, rales or rhonchi HEART: Irregular, irregular. Rate is in the low 100s ABDOMEN: Soft, NT, ND, BS Present EXTREMITIES: No LE edema, pedal pulses intact and equal bilaterally NEURO: Patient initially with decreased response. Eventually patient was alert and oriented. Unable to use right arm. All 3 other extremities appropriate strength and function. Results & Data Results & Data ([facility]) Vital Signs (Past 12 Hours) Vital Signs Temp Pulse Pulse Resp BP BP Pulse Ox 04/05/21 14:22 102 H 18 150/102 H 98 04/05/21 13:50 101 H 24 188/112 H 99 04/05/21 11:59 36.8 C 97 H 20 148/78 H 97 04/05/21 11:00 97 04/05/21 10:09 78 04/05/21 06:21 37.1 C 82 21 154/108 H 94 04/05/21 04:35 37.2 C 68 166/94 H 97 Laboratory Results 04/05/21 06:08 04/05/21 06:[address] 04/05/21 13:51 CT head/brain wo con Clinical Indication: [place] ^CVA. Technique: Contiguous axial CT images of the head were acquired from the base of the skull to the vertex without intravenous contrast administration. Images were viewed in brain, subdural and bone windows. Automated dose lowering techniques and/or adjustment according to patient size were utilized for this exam. Comparison: None available at the time of this dictation. Findings: Areas of decreased attenuation are present in the periventricular and subcortical white matter bilaterally consistent with small vessel ischemic disease. Generalized cerebral atrophy with commensurate enlargement of the ventricles, sulci, and cisterns is also present. There is no acute intracranial hemorrhage or evidence of acute territorial infarction. No shift of the midline structures, mass effect, or extra-axial abnormalities are shown. Atheroscl erotic calcifications are present in the intracranial segments of the internal carotid arteries. Imaged portions of the paranasal sinuses and mastoid air cells are clear. The orbits appear normal. There are no acute fractures of the calvaria or scalp swelling. Impression: No acute intracranial hemorrhage, evidence of acute territorial infarction, or other acute intracranial disease process. ACT 112: Negative or not required by law. Electronically signed by: Gilberto Phillips M.D. 04/05/2021 2:12 PM PG Care Time/CCT Total # of Minutes Spent Total Time Spent with Patient: Total time spent is greater than 50% in coordination of care (as documented) at patient's floor/unit and/or counseling patient:60 minutes including discussion with specialists and response to code purple Coding Level of Care Code 98287 Subseq Hosp Care Lvl 3 Diagnoses Cardioembolic stroke I63.9 Internal carotid artery stenosis I65.29 Hypertension I10 Polycythemia D75.1 Hyperbilirubinemia E80.6 Morbid obesity E66.01 Atrial fibrillation I48.91 Atrial fibrillation type: unspecified DVT prophylaxis Z29.9 Seizure R56.9 Alcohol abuse F10.10 Time Spent (min) 60 (1) Atrial fibrillation Atrial fibrillation type: unspecified Qualified Code(s): I48.91 - Unspecified atrial fibrillation
[2021-04-05] MEDS ORDERED: GABAPENTIN 600 MG TAB PO SCH (20:30)
[2021-04-06 06:35] LABS: Basophils # (auto) 0.04 K/uL (0-0.2); Basophils % (auto) 0.3 %; Eosinophils # (auto) 0.11 K/uL (0-0.5); Eosinophils % (auto) 0.9 %; Hematocrit (blood only) 51.1 % (42-52); Hemoglobin 17.2 g/dL (14.0-18.0); Immature Granulocytes # (auto) 0.01 K/uL (0.00-0.02); Immature Granulocytes % (auto) 0.1 %; Lymphocytes % (auto) 8.4 %; Mean Corpuscular Hemoglobin 33.2 pg (25-34); Mean Corpuscular Hgb Conc 33.7 g/dL (32-36); Mean Corpuscular Volume 98.6 fL (80-100); Monocytes % (auto) 14.2 %; Neutrophils % (auto) 76.1 %; Platelet Count 239 K/uL (130-400); RDW Coefficient of Variation 13.2 % (11.5-14.5); RDW Standard Deviation 47.4 fL (36.4-46.3); Red Blood Count 5.18 M/uL (4.7-6.1); White Blood Count 11.96 K/uL (4.8-10.8)
[2021-04-06 06:45] LABS: INR 1.1 (0.9-1.1); Partial Thromboplastin Ratio 1.1; Partial Thromboplastin Time 30.1 Seconds (21.0-31.0); Prothrombin Time 11.2 Seconds (9.0-12.0)
[2021-04-06 07:13] LABS: Albumin Level 3.5 gm/dl (3.4-5.0); BUN Creatinine Ratio 17.6 (10-20); Calcium 8.6 mg/dl (8.5-10.1); Creatinine Clr Calc Pharmacy 110.9 ml/min; Est GFR (African American) 90.4 ml/min; Magnesium 2.3 mg/dl (1.8-2.4); Potassium 4.1 mmol/L (3.5-5.1)
[2021-04-06 07:16] LABS: Albumin Globulin Ratio 0.9 (0.9-2); Bilirubin,Total 1.6 mg/dl (0.2-1); Globulin 3.7 gm/dl (2.5-4.0); Total Protein 7.2 gm/dl (6.4-8.2)
[2021-04-06] MEDS: ASPIRIN 81 MG CHEW PO SCH (08:15)
[2021-04-06] MEDS: APIXABAN 5 MG TABLET PO SCH ×2 (08:15→20:06)
[2021-04-06] MEDS: THIAMINE HCL 100 MG TAB PO SCH (08:15)
[2021-04-06] MEDS: FOLIC ACID 1 MG TAB PO SCH (08:15)
[2021-04-06] MEDS: lisinopril 10 MG TAB PO SCH (08:16)
[2021-04-06] MEDS: METOPROLOL SUCC 50MG EXT REL TAB PO SCH ×2 (08:16→22:07)
--- NOTE | 2021-04-06 09:48 | Electroencephalogram ---
EEG Procedure Note Date of Service April 06, 2021 Start / End Times Start Time: 721 End Time: 741 Referring Physician Felton Aggarwal PA-C History patient is a 60-year-old with witnessed seizure-like activity the afternoon of April 05 Home Medication List Medication Instructions Recorded Confirmed Type cholecalciferol (vitamin D3) 25 0 mcg PO DAILY 04/03/21 04/03/21 History mcg (1,000 unit) tablet (Vitamin D3) ibuprofen 200 mg tablet 400 mg PO Q6H PRN 04/03/21 04/03/21 History multivitamin 1 tab PO DAILY 04/03/21 04/03/21 History Inpatient Medication List Apixaban (Apixaban 5 Mg Tablet) 5 mg PO BID [facility] Stop: 05/04/21 20:59 Last Admin: 04/06/21 08:15 Dose: 5 mg Documented by: [id number] Admin: 04/05/21 20:08 Dose: 5 mg Documented by: [id number] Admin: 04/05/21 08:46 Dose: 5 mg Documented by: [id number] Cosigned by: [id number] Admin: 04/04/21 21:16 Dose: 5 mg Documented by: [id number] Aspirin (Aspirin 81 Mg Chew) [facility] [place] Stop: 05/04/21 08:59 Last Admin: 04/06/21 08:15 Dose: 81 mg Documented by: [id number] Admin: 04/05/21 08:43 Dose: 81 mg Documented by: [id number] Cosigned by: [id number] Admin: 04/04/21 08:36 Dose: 81 mg Documented by: [id number] Folic Acid (Folic Acid 1 Mg Tab) 1 mg PO QA [facility] Stop: 05/05/21 08:59 Last Admin: 04/06/21 08:15 Dose: 1 mg Documented by: [id number] Admin: 04/05/21 15:08 Dose: 1 mg Documented by: [id number] Lisinopril (Lisinopril 10 Mg Tab) 10 mg PO QAM [facility] Stop: 05/04/21 12:59 Last Admin: 04/06/21 08:16 Dose: 10 mg Documented by: [id number] Admin: 04/05/21 08:44 Dose: 10 mg Documented by: [id number] Cosigned by: [id number] Admin: 04/04/21 14:54 Dose: 10 mg Documented by: [id number] Metoprolol Succinate (Metoprolol Succ 50mg Ext Rel Tab) 50 mg PO [facility] Stop: 05/04/21 13:14 Last Admin: 04/06/21 08:16 Dose: 50 mg Documented by: [id number] Admin: 04/05/21 08:40 Dose: 50 mg Documented by: [id number] Cosigned by: [id number] Admin: 04/04/21 14:54 Dose: 50 mg Documented by: [id number] Thiamine HCl (Thiamine Hcl 100 Mg Tab) 100 mg PO [facility] Stop: 05/05/21 08:59 Last Admin: 04/06/21 08:15 Dose: 100 mg Documented by: [id number] Admin: 04/05/21 15:08 Dose: 100 mg Documented by: [id number] Discontinued Medications Aspirin (Aspirin Chew 324 Mg) 324 mg PO NOW STA Stop: 04/03/21 21:15 Last Admin: 04/03/21 21:19 Dose: 324 mg Documented by: [id number] Gabapentin (Gabapentin 600 Mg Tab) 1,200 mg PO ONE ONE Stop: 04/05/21 14:31 Last Admin: 04/05/21 15:09 Dose: 1,200 mg Documented by: [id number] Heparin Sodium (Porcine) (Heparin Sod (Porcine) 1000 Unit/Ml) 4,500 units IV NOW ONE Stop: 04/04/21 11:00 Last Admin: 04/04/21 12:16 Dose: 4,500 units Documented by: [id number] Cosigned by: [id number] Heparin Sodium/Dextrose (Heparin Iv Adult Wt-Based Low-Dose *No* Bolus Protocol) 1 ea IV Q15M [facility]; Protocol Stop: 05/04/21 02:44 Last Admin: 04/05/21 07:31 Dose: Not Given Documented by: [id number] Admin: 04/05/21 07:17 Dose: Not Given Documented by: [id number] Heparin Sodium/Dextrose (Heparin 94299 Unit/500 Ml D5w) Confirm Administered Dose 25,000 units IV .STK-MED ONE Stop: 04/04/21 03:05 Last Admin: 04/04/21 03:23 Dose: Not Given Documented by: [id number] Hydralazine HCl (Hydralazine Hcl 20 Mg/Ml Vial) 10 mg IV NOW STA Stop: 04/04/21 08:10 Last Admin: 04/04/21 08:35 Dose: 10 mg Documented by: [id number] Lorazepam (Ativan) 1 mg in 2 mls @ 2 mls/min IV NOW STA Stop: 04/03/21 23:30 Last Admin: 04/03/21 23:45 Dose: 2 mls/min Documented by: [id number] Potassium Chloride/Sodium Chloride (Normal Saline W/20 Meq Kcl) 20 meq in 1,000 mls @ 80 mls/hr IV .[id number] [facility] Stop: 04/04/21 12:59 Last Infusion: 04/04/21 14:19 Dose: 0 mls/hr Documented by: [id number] Admin: 04/04/21 01:48 Dose: 80 mls/hr Documented by: [id number] Heparin Sodium/Dextrose (Heparin Sodium/Dextrose) 25,000 units in 500 mls @ 26 mls/hr IV .[id number] [facility]; Protocol Stop: 04/04/21 21:00 Last Titration: 04/05/21 07:15 Dose: 0 units/hr, 0 mls/hr Documented by: [id number] Cosigned by: [id number] Titration: 04/04/21 22:48 Dose: 0 units/hr, 0 mls/hr Documented by: [id number] Cosigned by: [id number] Titration: 04/04/21 19:06 Dose: 1,300 units/hr, 26 mls/hr Documented by: [id number] Cosigned by: [id number] Titration: 04/04/21 10:10 Dose: 1,300 units/hr, 26 mls/hr Documented by: [id number] Cosigned by: [id number] Admin: 04/04/21 03:20 Dose: 1,000 units/hr, 20 mls/hr Documented by: [id number] Cosigned by: [id number] Ioversol (Optiray 320 125ml) 118 ml IV ONCE ONE Stop: 04/03/21 20:28 Last Admin: 04/03/21 20:28 Dose: 118 ml Documented by: [id number] Labetalol HCl (Labetalol Hcl Iv 5 Mg/Ml 20ml) 20 mg IV NOW STA Stop: 04/03/21 21:15 Last Admin: 04/03/21 21:19 Dose: 20 mg Documented by: [id number] Cosigned by: [id number] Lorazepam (Lorazepam 2 Mg/4 Ml Vial) Confirm Administered Dose 2 mg .ROUTE .STK- MED ONE Stop: 04/03/21 23:33 Last Admin: 04/03/21 23:45 Dose: Not Given Documented by: [id number] Metoprolol Tartrate (Metoprolol Tartrate 1 Mg/Ml Vial) 5 mg IV Q4 [facility] Stop: 05/04/21 03:59 Last Admin: 04/04/21 16:47 Dose: 5 mg Documented by: [id number] Admin: 04/04/21 12:17 Dose: 5 mg Documented by: [id number] Admin: 04/04/21 08:35 Dose: 5 mg Documented by: [id number] Admin: 04/04/21 04:08 Dose: 5 mg Documented by: [id number] Metoprolol Tartrate (Metoprolol Tartrate 50 Mg Tab) 50 mg PO BID [facility] Stop: 05/04/21 17:29 Last Admin: 04/04/21 18:03 Dose: 50 mg Documented by: [id number] Miscellaneous (Heparin Drip - Stop Order) 1 ea N/A TODAY@2058 ONE Stop: 04/04/21 21:00 Last Admin: 04/04/21 21:16 Dose: 1 ea Documented by: [id number] Thiamine HCl (Thiamine Hcl 100 Mg/Ml 2 Ml Vial) 100 mg IM NOW STA Stop: 04/05/21 13:54 Last Admin: 04/05/21 14:10 Dose: Not Given Documented by: [id number] Description This is a 21 electrode EEG with a single channel dedicated to limited EKG. The electrodes were placed in accordance with the International 10-20 system. Interpretation The predominant background activity consists of an irregular 8 Hz activity, of up to 20- 30 mV in amplitude,seen symmetrically distributed over the posterior head regions bilaterally, spreading anteriorly bilaterally and symmetrically. This activity Has little attenuation with eye-opening and other alerting procedures. Photic stimulation was performed and elicited no change in the background activity and no abnormal responses were seen. Hyperventilation was not performed. A minimal amount of muscle and movement artifact activity contaminated the recording and did not hinder interpretation to any significant degree. Throughout the waking portion of the recording, no focal abnormalities or potentially epileptogenic discharges were seen. patient entered drowsy state intermittently throughout the recording with no further activation. In summary, this EEG essentially normal during wakefulness and drowsiness. No focal abnormalities, potentially epileptogenic discharges, or abnormal slow activity was seen. Low amplitude is not abnormal, in this case. Clinical Correlation The abscence of potentially epileptogenic activity does not exclude a seizure disorder, since interictally, EEGs can be normal. Clinical correlation is required. [facility] EEG Procedure Codes Indication for Procedure (1) Seizure: Neurology Neurology: 60508 EEG include record awake & drowsy
--- NOTE | 2021-04-06 09:59 | Neurology Progress Note ---
Date of Service April 06, 2021 Assessment & Plan (1) Seizure: (2) Cardioembolic stroke: (3) Internal carotid artery stenosis: (4) Hypertension: (5) Alcohol abuse: Plan: Patient had the onset of difficulty speaking and right upper extremity weakness evening of April 03. MRI showed multiple acute to subacute acute white matter changes in the posterior left parietal head region, consistent with cardioembolic infarcts. In reviewing this MRI with Dr. Diaz in Radiology this morning, and there is 1 lesion in the left posterior cerebral artery distribution and several in the middle cerebral artery distribution both posterior frontal and parietal head regions. he believes that the origin of the embolus is likely coming from the left carotid bulb. There are no lesions in other vascular distributions on the left or on the right making a cardiac source possible but less likely. The patient is in chronic atrial fibrillation and is on Eliquis and 81 milligram aspirin. Clinically, he has improving paresis of the right upper extremity and improving expressive aphasia. on April 05, in the early afternoon, he had what seemed to be a simple partial seizure ( by his description) or a complex partial seizure (by the nursing note). He is back to baseline today. His stroke would put him at risk for partial seizure. in addition the patient has morbid obesity, polycythemia, and hypertension. recommendations: 1. continue 81 mg aspirin tablet daily. This will help prevent small vessel ischemic disease that cannot be helped by the anticoagulant. 2. Continue with Eliquis 5 mg twice a day. 3. Continue physical, occupational, and speech therapy. 4. control blood pressure as you are doing, aiming for a mean arterial pressure of approximately 100. 5. hemoglobin A1c was 6.3. Control glucose is aiming for hemoglobin A1c of 6.0 if possible. 6. patient could be initiated on a statin, and he would be a high-dose statin candidate. 7. The patient does not seem to be in alcohol withdrawal today. Because of his event yesterday I would initiate levetiracetam 500 milligrams twice daily (no need for loading dose ) to cover for partial seizures. Overall, I spent a total of 60 minutes with this case including review of records, Review of CT films, direct evaluation the patient at bedside, and discussion of the case with Dr. Diaz in Radiology, and Dr. Olmstead, including differential diagnosis and treatment options. Admission and Anticipated Discharge Date Admission Date: April 03, 2021 Subjective patient had an event yesterday afternoon around 1345, when he states he had the sudden onset of the painful clenching of his right hand. This started in his hand and worked its way up to the shoulder over about 30 seconds. It was very painful to him and then it was over and he was back to his baseline. Nursing reports that he was flexing and extending his right upper extremity and had a reddish purple coloration to his face and neck. He was placed on oxygen and following the event his arm was flaccid. Patient does not remember any abnormality of the left upper extremity or legs. He remembers the events and has no alteration in consciousness. A CT scan of the head showed no acute changes. Patient has had no further events since. There was discussion that he was going to be put on alcohol withdrawal protocol (as he was tachycardic yesterday and diaphoretic -with the thought being he was in alcohol withdrawal) but this was never initiated. He was not put on any anticonvulsants either. This morning, the patient is doing well and is moving his arm better. He has no pain or headache. Additional history suggests that he drinks 8-10 beers in the evening. An EEG was obtained this morning and showed some very slight slowing/ irregularity to the background rhythm without any focal abnormalities or potentially epileptogenic discharges. Results & Data ([facility]) Vital Signs (Past 12 Hours) Vital Signs Temp Pulse Pulse Resp BP Pulse Ox 04/06/21 07:03 36.7 C 84 20 180/114 H 97 04/06/21 03:53 36.9 C 82 20 182/104 H 97 04/05/21 23:40 36.6 C 85 20 164/108 H 97 04/05/21 22:19 84 Exam (Neuro) Physical Exam: He is awake and alert. Speech is with some mild dysarthria. He also has some very mild expressive aphasia but no receptive aphasia. He can name objects and colors well. He follows commands well and is in normal mood. Extraocular eye muscles are intact without nystagmus. There is no facial droop and tongue is midline. The patient has 4/5 strength diffusely in the right upper extremity both proximally distally but his strength is improved compared to yesterday. The left upper extremity and both legs have 5/5 strength diffusely. Reflexes are decreased in all 4 limbs. He has no abnormal involuntary movements today. PG Care Time/CCT Total # of Minutes Spent Total Time Spent with Patient: Total time spent is greater than 50% in coordination of care (as documented) at patient's floor/unit and/or counseling patient: Coding Level of Care Code 32522 Subseq Hosp Care Lvl 3 Diagnoses Seizure R56.9 Cardioembolic stroke I63.9 Internal carotid artery stenosis I65.29 Hypertension I10 Alcohol abuse F10.10 Time Spent (min) 60 Comment Add modifiers as able
[2021-04-06] MEDS ORDERED: GABAPENTIN 600 MG TAB PO SCH (10:30)
[2021-04-06] MEDS: ATORVASTATIN 40 MG TAB PO SCH (11:05)
[2021-04-06] MEDS ORDERED: levETIRAcetam 500 MG in 0.9 % SODIUM CHLORIDE 100 ML IV SCH (11:30)
[2021-04-06] MEDS ORDERED: METOPROLOL SUCC 25MG EXT REL TAB PO ONE (11:45)
--- NOTE | 2021-04-06 15:09 | Hospitalist Progress Note ---
Date of Service April 06, 2021 Assessment & Plan (1) Cerebrovascular accident: Plan: Impression: 60-year-old male who was not received medical care for le ast 12 years. 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 Morbidly obese with a BMI of 42 kg/m. Presented with right-sided weakness and found to have acute CVA. Does not appear to have any cognitive loss. Was started on heparin dose. This was reviewed by a neurology and is appropriate. Converted to Eliquis twice daily. MRI of the brain with no hemorrhage or mass- effect. PT/OT evaluations and treatment ordered. Patient had a partial complex seizure on 04/05 resulting in temporary loss of use of right arm. CT scan of the head without significant change. Upon return from CT lab, patient's function of his right arm has returned. CTA head/neck with no LVO but with severe multifocal stenoses of posterior circulation and 40% stenosis of LICA Echocardiogram normal, no PFO, but not able to assess for ASD Is in persistent atrial fibrillation on telemetry which is a new diagnosis for him and he was started on Eliquis Patient was not a candidate for TPA Neurology consulted. Appreciate their input Neurology thinks that cardioembolic source is less likely and that given the distribution of the strokes, and in review with radiology, the source may have been embolic from the left carotid artery bulb. -Started aspirin 81 mg p.o. once daily and is now anticoagulated with Eliquis for ongoing atrial fibrillation -Continue current treatment with physical therapy and Occupational Therapy and watch for any cognitive or physical changes while patient is on anticoagulation -added on high intensity statin with atorvastatin 80mg daily -with prediabetes, A1C 6.3%--> needs dietary changes and weight loss -Needs improved blood pressure control-started metoprolol and will increase again today, started lisinopril-goal MAP 100 (2) Seizure: Plan: Witnessed seizure by patient's RN Initial loss of function of right arm. This returned within an hour Question of alcohol withdrawal causing seizure with post ictal response Initiate AWSS as well as lorazepam, thiamine, folic acid Counseled on need to have abstinence from alcohol Neurology already involved secondary to CVA. Neurology does not think now that the seizure was either a simple partial seizure related to the stroke Discussed with Dr. Dexter. EEG 04/06/2021 with partial complex versus simple seizure Start Keppra 500 mg p.o. twice daily Continue seizure precautions Continue to monitor on telemetry Form to be submitted to the [facility] DOT to recommend no driving (3) Alcohol abuse: Plan: Patient admits to drinking 8-10 beers daily Last consumption 04/02/2021 Appears to be starting withdrawal We will initiate AWSS protocol including lorazepam, thiamine, folic acid, mul tivitamin Monitor on telemetry (4) Atrial fibrillation: Plan: Newly diagnosed Continue beta-blockade with Toprol-XL at 75 mg p.o. daily Continue Eliquis twice daily on discharge Outpatient management with cardiology (5) Internal carotid artery stenosis: Plan: There is ~40% stenosis of the proximal left internal carotid artery. Mild plaque within the proximal right internal carotid artery without significant stenosis After patient recovers from acute CVA, recommend outpatient follow-up with vascular surgery for carotid stenosis management Patient should be placed on statin as above, started ASA (6) Hypertension: Plan: Improved with metoprolol succinate 50 mg p.o. daily and lisinopril 10 mg p.o. daily but still hypertensive We will give an additional dose of 25 mg of metoprolol succinate this morning and changed daily dose to 75 mg p.o. daily If patient continues to have hypertension, can increase lisinopril dose. It should be noted lisinopril was just started on 02/01/2021 Continue to monitor on telemetry Cardiology consulted. Appreciate Dr. Estrada's input (7) Polycythemia: Plan: Hemoglobin stable We will treat underlying causes including morbid obesity and probable apnea secondary to obesity hypoventilation syndrome Outpatient management once established with a PCP (8) Hyperbilirubinemia: Plan: Total bilirubin stable Patient with regular alcohol consumption LFTs within normal limits Outpatient management Differential includes Gilbert's disease (9) Morbid obesity: Plan: BMI 42.0 kg/m Discussed need for weight loss with the patient May benefit from polysomnography and treatment for presumed obesity hypoventilation syndrome with overlap obstructive sleep apnea (10) Prediabetes: Plan: Hemoglobin A1c here 6.3% Needs lifestyle changes, weight loss, low carbohydrate diet Consider starting metformin as an outpatient (11) DVT prophylaxis: Plan: Currently on Eliquis Encourage ambulation as tolerated Plan: Disposition: Referral made to [facility]. Patient in need of rehab Admission and Anticipated Discharge Date Admission Date: April 03, 2021 Supervising Physician Co-Signing Physician Notes PA Supervision Note: I did not personally see or examine the patient today, but I verified all marcos points of AJKUB Aggarwal's assessment and plan with the following exceptions/addition s: Changes made to assessment/plan as above Blood pressure continues to remain quite elevated throughout the day despite increase in Toprol-XL this morning-we will further increase to 50 mg p.o. twice daily this evening Stable for downgrade to medical floor with telemetry Subjective Attending: Dr. Olmstead Patient improved today. Returned use of right hand and now with ability to close hand and pull arm. No further seizures. Continues to have some hypertension but asymptomatic. No chest pain or tightness. Patient states that headache is res olved. No new complaints. Review of Systems Review of Systems: All systems reviewed & are unremarkable except as noted in Subjective Physical Exam Physical Exam: GENERAL : No acute distress EYES: No icterus, gaze conjugate. Pupils equal round and reactive to light NOSE: No evidence of epistaxis MOUTH: No lesions or candidiasis. Tongue is midline. No facial droop. NECK: Supple LUNGS: CTA B/L, no wheezes, rales or rhonchi HEART: Irregular, irregular, rate controlled in the 80s ABDOMEN: Soft, NT, ND, BS Present EXTREMITIES: No LE edema, pedal pulses intact NEURO: A&OX3. Improved use of right arm. Now able to clench right fist. Able to hold onto fingers as I pull with right hand. Full movement of right leg and foot. Results & Data Results & Data ([facility]) Vital Signs (Past 12 Hours) Vital Signs Temp Pulse Resp BP Pulse Ox 04/06/21 11:03 36.7 C 64 20 147/102 H 97 04/06/21 07:03 36.7 C 84 20 180/114 H 97 04/06/21 03:53 36.9 C 82 20 182/104 H 97 Laboratory Results 04/06/21 06:00 04/06/21 06:00 Diagnostic Findings No new radiological imaging since yesterday PG Care Time/CCT Total # of Minutes Spent Total Time Spent with Patient: Total time spent is greater than 50% in coordination of care (as documented) at patient's floor/unit and/or counseling patient: Coding Level of Care Code 15773 Subseq Hosp Care Lvl 2 Diagnoses Seizure R56.9 Alcohol abuse F10.10 Internal carotid artery stenosis I65.29 Hypertension I10 Polycythemia D75.1 Hyperbilirubinemia E80.6 Morbid obesity E66.01 Atrial fibrillation I48.91 Atrial fibrillation type: unspecified DVT prophylaxis Z29.9 Cerebrovascular accident I63.9 CVA mechanism: unspecified Prediabetes R73.03 Time Spent (min) 30 (1) Atrial fibrillation Atrial fibrillation type: unspecified Qualified Code(s): I48.91 - Unspecified atrial fibrillation (2) Cerebrovascular accident CVA mechanism: unspecified Qualified Code(s): I63.9 - Cerebral infarction, unspecified
[2021-04-06] MEDS: levETIRAcetam 500 MG TAB PO SCH (22:44)
[2021-04-07] MEDS: ASPIRIN 81 MG CHEW PO SCH (08:08)
[2021-04-07] MEDS: FOLIC ACID 1 MG TAB PO SCH (08:08)
[2021-04-07] MEDS: levETIRAcetam 500 MG TAB PO SCH ×2 (08:08→20:26)
[2021-04-07] MEDS: APIXABAN 5 MG TABLET PO SCH ×2 (08:08→20:28)
[2021-04-07] MEDS: METOPROLOL SUCC 50MG EXT REL TAB PO SCH ×2 (08:08→20:28)
[2021-04-07] MEDS: ATORVASTATIN 40 MG TAB PO SCH (08:08)
[2021-04-07] MEDS: THIAMINE HCL 100 MG TAB PO SCH (08:08)
[2021-04-07] MEDS: lisinopril 10 MG TAB PO SCH (08:08)
[2021-04-07] MEDS ORDERED: METOPROLOL SUCC 25MG EXT REL TAB PO SCH (09:00)
[2021-04-07] MEDS ORDERED: GABAPENTIN 600 MG TAB PO SCH (14:30)
--- NOTE | 2021-04-07 19:18 | Hospitalist Progress Note ---
Date of Service April 07, 2021 Assessment & Plan (1) Cerebrovascular accident: Plan: Impression: 60-year-old male who was not received medical care for le ast 12 years. 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 Morbidly obese with a BMI of 42 kg/m. Presented with right-sided weakness and found to have acute CVA. Does not appear to have any cognitive loss. Was started on heparin dose. This was reviewed by a neurology and is appropriate. Converted to Eliquis twice daily. MRI of the brain with no hemorrhage or mass- effect. PT/OT evaluations and treatment ordered. Patient had a partial complex seizure on 04/05 resulting in temporary loss of use of right arm. CT scan of the head without significant change. Upon return from CT lab, patient's function of his right arm has returned. CTA head/neck with no LVO but with severe multifocal stenoses of posterior circulation and 40% stenosis of LICA Echocardiogram normal, no PFO, but not able to assess for ASD Is in persistent atrial fibrillation on telemetry which is a new diagnosis for him and he was started on Eliquis Patient was not a candidate for TPA Neurology consulted. Appreciate their input Neurology thinks that cardioembolic source is less likely and that given the distribution of the strokes, and in review with radiology, the source may have been embolic from the left carotid artery bulb. -Started aspirin 81 mg p.o. once daily and is now anticoagulated with Eliquis for ongoing atrial fibrillation -Continue current treatment with physical therapy and Occupational Therapy and watch for any cognitive or physical changes while patient is on anticoagulation -added on high intensity statin with atorvastatin 80mg daily -with prediabetes, A1C 6.3%--> needs dietary changes and weight loss -Needs improved blood pressure control-started metoprolol and titrated upward, started lisinopril-goal MAP 100-blood pressures improved today (2) Seizure: Plan: Witnessed seizure by patient's RN Initial loss of function of right arm. This returned within an hour Question of alcohol withdrawal causing seizure with post ictal response Initiate AWSS as well as lorazepam, thiamine, folic acid Counseled on need to have abstinence from alcohol Neurology already involved secondary to CVA. Neurology thinks that the seizure was a simple partial seizure related to the stroke Discussed with Dr. Dexter. EEG 04/06/2021 showed some very slight slowing/irregularity to the background rhythm without any focal abnormalities or potentially epileptogenic discharges Started Keppra 500 mg p.o. twice daily Continue seizure precautions Continue to monitor on telemetry Form to be submitted to the [facility] to recommend no driving -Will need to follow-up with neurology after discharge (3) Alcohol abuse: Plan: Patient admits to drinking 8-10 beers daily Last consumption 04/02/2021 No evidence of withdrawal-seizure as above likely more related to the strokes Continue AWSS protocol including as needed lorazepam, and daily thiamine, folic acid; will add on multivitamin Monitor on telemetry (4) Atrial fibrillation: Plan: Newly diagnosed, rates are well controlled Continue beta-blockade with Toprol-XL 50 mg PO BID which was increased mostly for significant hypertension Continue Eliquis twice daily on discharge Outpatient management with cardiology (5) Internal carotid artery stenosis: Plan: There is ~40% stenosis of the proximal left internal carotid artery. Mild plaque within the proximal right internal carotid artery without significant stenosis After patient recovers from acute CVA, recommend outpatient follow-up with vascular surgery for carotid stenosis management Patient started on Atorvastatin 80mg daily Continue aspirin 81 mg PO daily (6) Hypertension: Plan: Increased Toprol XL to 50 mg PO BID for elevated blood pressures and they are now improving Continue lisinopril 10 mg p.o. daily. May increase if patient continues to have elevated pressures Cardiology consulted. Appreciate Dr. Estrada's input (7) Polycythemia: Plan: Hemoglobin stable We will treat underlying causes including morbid obesity and probable apnea secondary to obesity hypoventilation syndrome Outpatient management once established with a PCP (8) Hyperbilirubinemia: Plan: Total bilirubin elevated but stable at 1.6 Patient with regular alcohol consumption LFTs within normal limits Outpatient management Differential includes Gilbert's disease (9) Morbid obesity: Plan: BMI 42.0 kg/m Discussed need for weight loss with the patient May benefit from polysomnography and treatment for presumed obesity hypoventilation syndrome with overlap obstructive sleep apnea (10) Prediabetes: Plan: Hemoglobin A1c here 6.3% Needs lifestyle changes, weight loss, low carbohydrate diet Consider starting metformin as an outpatient (11) DVT prophylaxis: Plan: Continue Eliquis Encourage ambulation as tolerated Plan: Disposition: Referral made to [facility]. Patient in need of rehab- hopeful for insurance authorization approval for discharge for tomorrow Admission and Anticipated Discharge Date Admission Date: April 03, 2021 Anticipated date of discharge: 04/08/21 Supervising Physician Co-Signing Physician Notes PA Supervision Note: I did not personally see or examine the patient today, but I verified all marcos points of JAKUB Aggarwal's assessment and plan with the following exceptions/additions: Changes made to assessment/plan as above Subjective Attending: Dr. Olmstead Patient seen and examined at bedside. He has improved function of his right hand. He can wiggle his fingers now and he can make a fist. Strength is much improved. He denies any paresthesias. He has no headache. He has no further seizures. Patient denies any fever, chills, sweats, rigors. Has no other acute complaints. Review of Systems Review of Systems: All systems reviewed & are unremarkable except as noted in Subjective Physical Exam Physical Exam: GENERAL : No acute distress EYES: No icterus, gaze conjugate NOSE: No evidence of epistaxis MOUTH: No lesions or candidiasis NECK: Supple LUNGS: CTA B/L, no wheezes, rales or rhonchi HEART: Regular, rate controlled ABDOMEN: Soft, NT, ND, BS Present EXTREMITIES: No LE edema, pedal pulses intact NEURO: A&OX3. Patient is to continue to show improvement with his hemiparesis. At this time patient is able to wiggle fingers and make a fist with right hand. Good control with flexion and extension of the right wrist. Strength seems to be improving to the right upper extremity. Patient does not appear to have any deficiencies of the right lower extremity. Results & Data Results & Data ([facility]) Vital Signs (Past 12 Hours) Vital Signs Temp Pulse Resp BP Pulse Ox 04/07/21 19:00 36.7 C 79 20 129/80 93 04/07/21 14:58 36.9 C 88 20 159/99 H 97 04/07/21 11:44 36.9 C 84 20 137/85 93 04/07/21 07:14 36.4 C L 88 20 174/107 H 95 Laboratory Results 04/06/21 06:00 04/06/21 06:00 Diagnostic Findings No further diagnostic imaging. PG Care Time/CCT Total # of Minutes Spent Total Time Spent with Patient: Total time spent is greater than 50% in coordination of care (as documented) at patient's floor/unit and/or counseling patient:25 minutes Coding Level of Care Code 95060 Subseq Hosp Care Lvl 2 Diagnoses Cerebrovascular accident I63.9 CVA mechanism: unspecified Seizure R56.9 Alcohol abuse F10.10 Atrial fibrillation I48.91 Atrial fibrillation type: unspecified Internal carotid artery stenosis I65.29 Hypertension I10 Polycythemia D75.1 Hyperbilirubinemia E80.6 Morbid obesity E66.01 Prediabetes R73.03 DVT prophylaxis Z29.9 Time Spent (min) 25 (1) Atrial fibrillation Atrial fibrillation type: unspecified Qualified Code(s): I48.91 - Unspecified atrial fibrillation (2) Cerebrovascular accident CVA mechanism: unspecified Qualified Code(s): I63.9 - Cerebral infarction, unspecified
[2021-04-08 06:23] LABS: Basophils # (auto) 0.04 K/uL (0-0.2); Basophils % (auto) 0.3 %; Eosinophils # (auto) 0.11 K/uL (0-0.5); Eosinophils % (auto) 0.9 %; Hematocrit (blood only) 52.1 % (42-52); Hemoglobin 17.5 g/dL (14.0-18.0); Immature Granulocytes # (auto) 0.02 K/uL (0.00-0.02); Immature Granulocytes % (auto) 0.2 %; Lymphocytes # (auto) 1.07 K/uL (1.2-3.4); Lymphocytes % (auto) 9.1 %; Mean Corpuscular Hemoglobin 33.6 pg (25-34); Mean Corpuscular Hgb Conc 33.6 g/dL (32-36); Mean Platelet Volume 9.9 fL (7.4-10.4); Monocytes # (auto) 1.65 K/uL (0.11-0.59); Neutrophils # (auto) 8.92 K/uL (1.4-6.5); Neutrophils % (auto) 75.5 %; Platelet Count 287 K/uL (130-400); RDW Coefficient of Variation 13.2 % (11.5-14.5); RDW Standard Deviation 48.7 fL (36.4-46.3); Red Blood Count 5.21 M/uL (4.7-6.1); White Blood Count 11.81 K/uL (4.8-10.8)
[2021-04-08 07:06] LABS: Albumin Level 3.4 gm/dl (3.4-5.0); BUN Creatinine Ratio 18.7 (10-20); Bilirubin Direct 0.5 mg/dl (0-0.2); Calcium 8.7 mg/dl (8.5-10.1); Creatinine Clr Calc Pharmacy 120.6 ml/min; Est GFR (African American) 97.3 ml/min; Est GFR (Non-African American) 83.9 ml/min; Potassium 4.1 mmol/L (3.5-5.1)
[2021-04-08 07:13] LABS: Bilirubin,Total 1.5 mg/dl (0.2-1); Thyroid Stimulating Hormone 2.61 uIu/ml (0.300-4.500); Total Protein 7.3 gm/dl (6.4-8.2)
[2021-04-08] MEDS: APIXABAN 5 MG TABLET PO SCH ×2 (07:38→20:59)
[2021-04-08] MEDS: FOLIC ACID 1 MG TAB PO SCH (07:39)
[2021-04-08] MEDS: ATORVASTATIN 40 MG TAB PO SCH (07:39)
[2021-04-08] MEDS: levETIRAcetam 500 MG TAB PO SCH ×2 (07:39→20:59)
[2021-04-08] MEDS: METOPROLOL SUCC 50MG EXT REL TAB PO SCH ×2 (07:40→20:59)
[2021-04-08] MEDS: lisinopril 10 MG TAB PO SCH (07:40)
[2021-04-08] MEDS: MULTIVITAMIN TAB PO SCH (07:41)
[2021-04-08] MEDS: THIAMINE HCL 100 MG TAB PO SCH (07:41)
--- NOTE | 2021-04-08 08:10 | Neurology Progress Note ---
Date of Service April 08, 2021 Assessment & Plan (1) Seizure: (2) Cardioembolic stroke: (3) Internal carotid artery stenosis: (4) Hypertension: (5) Alcohol abuse: Plan: Patient had the onset of difficulty speaking and right upper extremity weakness evening of April 03. On admission he had a significant expressive aphasia and right upper extremity weakness MRI showed multiple acute to subacute acute white matter changes in the posterior left parietal head region, consistent with cardioembolic infarcts. In reviewing this MRI, there is 1 lesion in the left posterior cerebral artery distribution and several in the middle cerebral artery distribution, both posterior frontal and parietal head regions.The origin of the embolus is likely coming from the left carotid bulb. There are no lesions in other vascular distributions on the left or on the right making a cardiac source possible, but less likely. The patient is in chronic atrial fibrillation and is on Eliquis and 81 milligram aspirin. Clinically, he has markedly improved in his speech and strength of the right extremity On April 05, in the early afternoon, he had what seemed to be a simple partial seizure ( by his description) or a complex partial seizure (by the nursing note). He has had no further seizures or spells since that time. He is stable on levetiracetam 500 milligrams twice daily. His stroke would put him at risk for partial seizure. in addition the patient has morbid obesity, polycythemia, and hypertension. Blood pressure is still optimally controlled. recommendations: 1. Continue 81 mg aspirin tablet daily. This will help prevent small vessel ischemic disease that cannot be helped by the anticoagulant. 2. Continue with Eliquis 5 mg twice a day. 3. Continue physical, occupational, and speech therapy. 4. Control blood pressure as you are doing, aiming for a mean arterial pressure of approximately 100. 5. Control glucose, aiming for hemoglobin A1c of <6.0, if possible. 6. Continue atorvastatin 80 milligrams daily (he is a high-dose statin candidate). 7. Continue levetiracetam 500 milligrams twice daily for now, I will consider discontinuing this as an outpatient. 8. I understand he is going to [facility]. I can see him as an outpatient following this in 4-6 weeks. Overall, I spent a total of 35 minutes with this case including review of records, direct evaluation the patient at bedside, and discussion of the case with RN at bedside and Dr. Olmstead, including differential diagnosis and treatment options. Admission and Anticipated Discharge Date Admission Date: April 03, 2021 Subjective Patient is doing well and feels that his speech in right arm are getting better. He does complain of a little bit of foot discomfort in bed but he says, when he is up walking, foot discomfort goes away. He denies back pain or any new numbness or weakness. He has no headache or dizziness. Nursing reports no seizure activity or other normal events. Laboratory studies reveal a mildly elevated white count but he is afebrile and Chem profile and CBC were otherwise unremarkable. Sodium is slightly low at 133. Blood pressure is 151/97 this morning Results & Data ([facility]) Vital Signs (Past 12 Hours) Vital Signs Temp Pulse Pulse Resp BP Pulse Ox 04/08/21 07:33 37.1 C 81 20 151/97 H 95 04/08/21 07:24 81 04/08/21 04:00 37.2 C 83 20 156/103 H 97 04/08/21 03:06 73 04/07/21 23:01 36.8 C 96 H 20 149/89 H 96 Exam (Neuro) Physical Exam: he is awake and alert. Speech has some mild dysarthria but it is markedly improved compared to 2 days ago. He has no expressive aphasia and names objects well. Mood is normal and affect is appropriate. Thought processes seem intact to conversation. Extraocular eye muscles are intact without nystagmus. There is no facial droop. With outstretched arms there is only minimal drift today. Strength is close to 5/5 diffusely in all major muscle groups of the right arm compared to the left except he does have some mild decreased facility and clumsiness of the right hand compared to the left. Both legs are 5/5 Bilaterally and diffusely. the right foot is nontender. There is a good range of motion in the toes and ankle discomfort PG Care Time/CCT Total # of Minutes Spent Total Time Spent with Patient: Total time spent is greater than 50% in coordination of care (as documented) at patient's floor/unit and/or counseling patient: Coding Level of Care Code 47349 Subseq Hosp Care Lvl 3 Diagnoses Seizure R56.9 Cardioembolic stroke I63.9 Internal carotid artery stenosis I65.29 Hypertension I10 Alcohol abuse F10.10 Time Spent (min) 35
[2021-04-08] MEDS ORDERED: lisinopril 10 MG TAB PO ONE (09:15)
[2021-04-08] MEDS: ASPIRIN 81 MG CHEW PO SCH (09:45)
--- NOTE | 2021-04-08 17:52 | Hospitalist Progress Note ---
Date of Service April 08, 2021 Assessment & Plan (1) Cerebrovascular accident: Plan: Impression: 60-year-old male who was not received medical care for le ast 12 years. 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 Morbidly obese with a BMI of 42 kg/m. Presented with right-sided weakness and found to have acute CVA. Does not appear to have any cognitive loss. Was started on heparin dose. This was reviewed by a neurology and is appropriate. Converted to Eliquis twice daily. MRI of the brain with no hemorrhage or mass- effect. PT/OT evaluations and treatment ordered. Patient had a partial complex seizure on 04/05 resulting in temporary loss of use of right arm. CT scan of the head without significant change. Upon return from CT lab, patient's function of his right arm has returned. CTA head/neck with no LVO but with severe multifocal stenoses of posterior circulation and 40% stenosis of LICA Echocardiogram normal, no PFO, but not able to assess for ASD Is in persistent atrial fibrillation on telemetry which is a new diagnosis for him and he was started on Eliquis Patient was not a candidate for TPA Neurology consulted. Appreciate their input Neurology thinks that cardioembolic source is less likely and that given the distribution of the strokes, and in review with radiology, the source may have been embolic from the left carotid artery bulb. -Started aspirin 81 mg p.o. once daily and is now anticoagulated with Eliquis for ongoing atrial fibrillation -Continue current treatment with physical therapy and Occupational Therapy and watch for any cognitive or physical changes while patient is on anticoagulation -added on high intensity statin with atorvastatin 80mg daily -with prediabetes, A1C 6.3%--> needs dietary changes and weight loss -Needs improved blood pressure control-started metoprolol and titrated upward, started lisinopril-goal MAP 100-blood pressures improved today (2) Seizure: Plan: Witnessed seizure by patient's RN on 04/05/2021 Initial loss of function of right arm. This returned within an hour Question of alcohol withdrawal causing seizure with post ictal response Initiate AWSS as well as lorazepam, thiamine, folic acid Counseled on need to have abstinence from alcohol Neurology already involved secondary to CVA. Neurology thinks that the seizure was a simple partial seizure related to the stroke Discussed with Dr. Dexter. EEG 04/06/2021 showed some very slight slowing/irregularity to the background rhythm without any focal abnormalities or potentially epileptogenic discharges Started Keppra 500 mg p.o. twice daily Continue seizure precautions Continue to monitor on telemetry Form submitted to the [facility] to recommend no driving -Will need to follow-up with neurology after discharge in 6 weeks (3) Alcohol abuse: Plan: Patient admits to drinking 8-10 beers daily Last consumption 04/02/2021 No evidence of withdrawal-seizure as above likely more related to the strokes Continue AWSS protocol including as needed lorazepam, and daily thiamine, folic acid, multivitamin Monitor on telemetry (4) Atrial fibrillation: Plan: Newly diagnosed, rates are well controlled Continue beta-blockade with Toprol-XL 50 mg PO BID which was increased mostly for significant hypertension Continue Eliquis twice daily on discharge Outpatient management with cardiology (5) Internal carotid artery stenosis: Plan: There is ~40% stenosis of the proximal left internal carotid artery. Mild plaque within the proximal right internal carotid artery without significant stenosis After patient recovers from acute CVA, recommend outpatient follow-up with vascular surgery for carotid stenosis management Patient started on Atorvastatin 80mg daily Continue aspirin 81 mg PO daily (6) Hypertension: Plan: Increased Toprol XL to 50 mg PO BID for elevated blood pressures Increased lisinopril to 20 mg p.o. daily. Cardiology consulted. Appreciate Dr. Estrada's input (7) Polycythemia: Plan: Hemoglobin stable We will treat underlying causes including morbid obesity and probable apnea secondary to obesity hypoventilation syndrome Outpatient management once established with a PCP (8) Hyperbilirubinemia: Plan: Total bilirubin elevated but stable at 1.6 Patient with regular alcohol consumption LFTs within normal limits Outpatient management Differential includes Gilbert's disease (9) Morbid obesity: Plan: BMI 42.0 kg/m Discussed need for weight loss with the patient It is clear the patient has obstructive sleep apnea/obesity hypoventilation syndrome Patient will need CPAP versus BiPAP on discharge from [facility] (10) Prediabetes: Plan: Hemoglobin A1c here 6.3% Needs lifestyle changes, weight loss, low carbohydrate diet Consider starting metformin as an outpatient (11) DVT prophylaxis: Plan: Continue Eliquis Encourage ambulation as tolerated Plan: Disposition: Referral made to [facility]. Insurance is approved. Hopeful discharge tomorrow Admission and Anticipated Discharge Date Admission Date: April 03, 2021 Supervising Physician Co-Signing Physician Notes PA Supervision Note: I did not personally see or examine the patient today, but I verified all marcos points of JAKUB Aggarwal's assessment and plan with the following exceptions/additions: None Subjective Attending: Dr. Olmstead Patient seen at bedside in bedside chair. He has much better use of his right hand. He is able to intentionally move each finger. He can easily do index finger to thumb. He is able to do middle finger ring finger and pinky to thumb but with more difficulty. He has good grasp of the right hand today and he has no further pronator drift. He denies any paresthesias of the right arm or leg. He has no complaints of vision change. No complaints of expressive aphasia. He has no shortness of breath. No chest pain or tightness. No awareness of tachyarrhythmia. Review of Systems Review of Systems: All systems reviewed & are unremarkable except as noted in Subjective Physical Exam Physical Exam: GENERAL : No acute distress EYES: No icterus, gaze conjugate. Pupils equal round and reactive to light. NOSE: No evidence of epistaxis MOUTH: No lesions or candidiasis NECK: Supple LUNGS: CTA B/L, no wheezes, rales or rhonchi HEART: Irregular, irregular. Rate controlled. ABDOMEN: Soft, NT, ND, BS Present EXTREMITIES: No LE edema, pedal pulses intact NEURO: A&OX3. Demonstrates more dexterity with right hand. Strength is improving on the right side. No slurred speech. Pronator drift is negative. Results & Data Results & Data ([facility]) Vital Signs (Past 12 Hours) Vital Signs Temp Pulse Pulse Resp BP Pulse Ox 04/08/21 15:51 37.0 C 83 20 135/85 95 04/08/21 14:57 77 04/08/21 11:01 36.7 C 73 20 123/81 95 04/08/21 07:33 37.1 C 81 20 151/97 H 95 04/08/21 07:24 81 Laboratory Results 04/08/21 06:04 04/08/21 06:04 PG Care Time/CCT Total # of Minutes Spent Total Time Spent with Patient: Total time spent is greater than 50% in coordination of care (as documented) at patient's floor/unit and/or counseling patient: Coding Level of Care Code 97191 Subseq Hosp Care Lvl 2 Diagnoses Cerebrovascular accident I63.9 CVA mechanism: unspecified Seizure R56.9 Alcohol abuse F10.10 Atrial fibrillation I48.91 Atrial fibrillation type: unspecified Internal carotid artery stenosis I65.29 Hypertension I10 Polycythemia D75.1 Hyperbilirubinemia E80.6 Morbid obesity E66.01 Prediabetes R73.03 DVT prophylaxis Z29.9 Time Spent (min) 30 (1) Atrial fibrillation Atrial fibrillation type: unspecified Qualified Code(s): I48.91 - Unspecified atrial fibrillation (2) Cerebrovascular accident CVA mechanism: unspecified Qualified Code(s): I63.9 - Cerebral infarction, unspecified
[2021-04-09] MEDS ORDERED: GABAPENTIN 600 MG TAB PO SCH (02:30)
[2021-04-09] MEDS: FOLIC ACID 1 MG TAB PO SCH (08:40)
[2021-04-09] MEDS: THIAMINE HCL 100 MG TAB PO SCH (08:40)
[2021-04-09] MEDS: METOPROLOL SUCC 50MG EXT REL TAB PO SCH (08:40)
[2021-04-09] MEDS: MULTIVITAMIN TAB PO SCH (08:40)
[2021-04-09] MEDS: APIXABAN 5 MG TABLET PO SCH (08:40)
[2021-04-09] MEDS: levETIRAcetam 500 MG TAB PO SCH (08:40)
[2021-04-09] MEDS: ATORVASTATIN 40 MG TAB PO SCH (08:40)
[2021-04-09] MEDS: ASPIRIN 81 MG CHEW PO SCH (08:41)
[2021-04-09] MEDS ORDERED: lisinopril 20 MG TAB PO SCH (09:00)
[2021-04-09] MEDS ORDERED: STROKE PATIENT DISCHARGE STA (13:38)
--- NOTE | 2021-04-09 13:49 | Discharge Summary ---
Date of Service April 09, 2021 Admission HPI Per Admitting Provider Chief Complaint: The patient presented to the emergency department after being made a stroke alert due to prehospital notification call describing right upper extremity weakness and difficulty speaking since about 6 PM this evening The patient is a 60-year-old male with no significant past medical history, due to avoidance of the medical system. He presented as noted above. In the emergency department, he reports that he had actually started having symptoms the previous day, and with no longer made as a stroke alert. His primary symptoms are that of knowing what he wants to say but not being able to get the words out. He denies any recent travels or sick exposures. He denies any previous occurrence of the symptoms. He cannot tell us last time he saw a physician. Principal Diagnosis Acute embolic CVA, Seizure Discharge Exam Constitutional WD/WN, vitals as above + morbidly obese Eyes + anicteric sclerae Neck trachea midline, no thyromegaly Respiratory normal respiratory effort, lungs clear to auscultation Cardiovascular RRR, no murmur, no edema Chest (Breasts) Chest: normal inspection of chest Gastrointestinal (Abdomen) normal bowel sounds, soft, nontender, no hepatosplenomegaly Musculoskeletal Extremities: extremities normal to inspection; no cyanosis and no clubbing Skin Rash on dorsal hands, extensor surfaces of arms and legs with pink macular rash with thickened white crusted papules Neurologic moves all extremities and awake; no focal motor deficits Psychiatric A+Ox3, euthymic affect Discharge Data Allergies Allergy/AdvReac Type Severity Reaction Status Date / Time No Known Allergies Allergy Unverified 04/03/21 21:46 Consultations 04/03/21 21:44 ED Decision to Admit Stat 04/04/21 00:23 Consult Cardiology Routine Consult Neurology Routine Ordered Studies 04/03/21 20:18 CT angio head w con Stat CT angio neck with con Stat CT head/brain wo con Stat 04/03/21 21:43 MR brain wo con Stat 04/05/21 13:51 CT head/brain wo con Stat Hospital Course (1) Cerebrovascular accident: 60-year-old male who was not received medical care for least 12 years. 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 Morbidly obese with a BMI of 42 kg/m. Presented with right-sided weakness and found to have acute CVA. Does not appear to have any cognitive loss. Was started on heparin gtt initially as found to be in Afib. This was reviewed by a neurology and is appropriate. Converted to Eliquis twice daily. MRI of the brain with no hemorrhage or mass-effect, but showed numerous small strokes in the high left posterior and parietal cortex, as well as a subcentimeter stroke in the left occipital cortex. PT/OT evaluations and treatment ordered and recommend rehab Patient had a partial complex seizure on 04/05 resulting in temporary loss of use of right arm. CT scan of the head without significant change. Upon return from CT lab, patient's function of his right arm has returned. CTA head/neck with no LVO but with severe multifocal stenoses of posterior circulation and 40% stenosis of LICA Echocardiogram normal, no PFO, but not able to assess for ASD Is in persistent atrial fibrillation on telemetry which is a new diagnosis for him and he was started on Eliquis Patient was not a candidate for TPA Neurology consulted. Appreciate their input Neurology thinks that cardioembolic source is less likely and that given the distribution of the strokes, and in review with radiology, the source may have been embolic from the left carotid artery bulb. -Started aspirin 81 mg p.o. once daily and is now anticoagulated with Eliquis for ongoing atrial fibrillation -Continue current treatment with physical therapy and Occupational Therapy -added on high intensity statin with atorvastatin 80mg daily -with prediabetes, A1C 6.3%--> needs dietary changes and weight loss -Needs improved blood pressure control-started metoprolol and titrated upward, started lisinopril-goal MAP 100-blood pressures improved today, but there is room for improvement -continue ASA 81mg daily -alcohol cessation advised -weight loss program advised -recommend sleep study -should have formal visual field testing with Ophthalmology as outpt given occipital lobe CVA -recommend f/u with Neurology in 4-6 weeks for seizure and CVA (2) Seizure: Witnessed seizure by patient's RN on 04/05/2021 Initial loss of function of right arm. This returned within an hour Question of alcohol withdrawal causing seizure, however more likely due to CVA as per Neuro Counseled on need to have abstinence from alcohol Neurology already involved secondary to CVA. Neurology thinks that the seizure was a simple partial seizure related to the stroke Discussed with Dr. Dexter. EEG 04/06/2021 showed some very slight slowing/irregularity to the background rhythm without any focal abnormalities or potentially epileptogenic discharges Started Keppra 500 mg p.o. twice daily No further seizures noted Form submitted to the [facility] to recommend no driving -Will need to follow-up with neurology after discharge in 6 weeks (3) Alcohol abuse: Patient admits to drinking 8-10 beers daily Last consumption 04/02/2021 No evidence of withdrawal-seizure as above likely more related to the strokes -continue daily thiamine, folic acid, multivitamin (4) Atrial fibrillation: Newly diagnosed, rates are well controlled Continue beta-blockade with Toprol-XL 50 mg PO BID which was increased mostly for significant hypertension Continue Eliquis twice daily on discharge Outpatient management with cardiology (5) Internal carotid artery stenosis: There is ~40% stenosis of the proximal left internal carotid artery. Mild plaque within the proximal right internal carotid artery without significant stenosis Patient started on Atorvastatin 80mg daily Continue aspirin 81 mg PO daily follow as outpt (6) Hypertension: Increased Toprol XL to 50 mg PO BID for elevated blood pressures Increased lisinopril to 20 mg p.o. daily. Cardiology consulted. Appreciate Dr. Estrada's input (7) Polycythemia: Hemoglobin stable We will treat underlying causes including morbid obesity and probable apnea secondary to obesity hypoventilation syndrome Outpatient management once established with a PCP (8) Hyperbilirubinemia: Total bilirubin elevated but decreased to 1.5 Patient with regular alcohol consumption as most likely cause no abd pain Other LFTs within normal limits Outpatient management (9) Morbid obesity: BMI 42.0 kg/m Discussed need for weight loss with the patient It is clear the patient has obstructive sleep apnea/obesity hypoventilation syndrome Patient will need CPAP versus BiPAP on discharge from [facility] (10) Prediabetes: Hemoglobin A1c here 6.3% Needs lifestyle changes, weight loss, low carbohydrate diet Consider starting metformin as an outpatient (11) DVT prophylaxis: Continue Eliquis Encourage ambulation as tolerated Disposition: Discharge to [facility] Total Time Total Time Spent Total Time Spent (In Minutes): 40 min Discharge Plan Discharge Items Patient Disposition: Transfer Inpatient Rehab Fac Reason For Visit: A-FIB WITH RVR, CVA Discharge Diagnosis: Acute CVA (stroke), Atrial fibrillation, Hypertension, Seizure, Prediabetes Condition on Discharge: Fair Activity: As commented below Lifting: Gradually increase as tolerated Bathing: No limitations Exercise/Sports: Gradually increase as tolerated Exercise Comment: with PT/OT Driving/Machine Use: No driving until cleared by Neurologist Weightbearing: Full weightbearing Non-emergency contact: Primary Care Provider, Histology Teacher and Neurologist Call non-emergency contact if: you have any medication questions and your symptoms worsen Follow-up/Referrals: Hunter Estrada MD [Physician] - (Follow up within 1 month for your atrial fibrillation ) Xavier Dexter MD [Physician] - (Follow up within 1 month for your stroke and seizure.) PCP,NO [Primary Care Provider] - Diet: Carb Consistent or DM2 and Heart Healthy Addtl Attending Provider Instructions: You were admitted after having multiple small strokes on the left side of your brain. You were found to have plaque build up in your left carotid artery as well as atrial fibrillation (irregular heart rhythm). Both of these conditions can lead to strokes. You were started on a blood thinner called Eliquis, as well as aspirin, and blood pressure as well as cholesterol medication to help prevent future strokes. Unfortunately, you also had a seizure secondary to your stroke. You were started on an anti-seizure medication called Keppra to prevent future seizures. You should not drive and should follow up with the Neurologist in 1 month to consider tapering off this medication. Follow up with the Histology Teacher for your abnormal heart rhythm. Once you are out of rehab, you will need to get established with a primary care physician as well. It is important that you not drink any alcohol, and work on weight loss. Risk Factors for Stroke: You can reduce your chances of stroke by working with your medical provider to adopt a healthy lifestyle. Some specific ways to lower your chance of stroke are: * If you are a smoker, now is the time to stop smoking cigarettes * If you are diabetic, improve the control of your blood sugars * Avoid excessive amounts of alcohol * Control high blood pressure * Lose weight if you are overweight * Be sure to lead an active lifestyle * Eat a healthy diet low in salt, cholesterol and fat You should know about other risk factors for stroke that you are unable to control. These include: * Age 55 years or older * Male gender * Certain racial groups: , or / * Family History of Stroke, Mini stroke or Heart Attack * Sickle Cell Disease Follow Up: It is important for you to keep your follow up appointments with your medical provider. Who to Call and When: Medical Emergencies: Call 911 immediately if you experience any of the following warning signs and symptoms of Stroke: * Sudden numbness or weakness of the face, arm or leg, especially on one side of the body * Sudden confusion, trouble speaking or understanding * Sudden trouble seeing in one or both eyes * Sudden trouble walking, dizziness, loss of balance or coordination * Sudden severe headache with no cause Do not delay calling 911 if you experience any warning signs or symptoms of a stroke. Delay in seeking medical attention may affect what treatments can be given to you. . Pending Studies at Discharge: No Stand-Alone Forms: My [facility] Skilled Items Patient informed of condition?: Yes DNR: No Discharge Level of Care: Acute rehab Communicable Disease: No Discharge Prognosis: Improving Lines: None Urinary Catheter: No Medications and DC Order Prescriptions: New Eliquis 5 mg Tablet 5 mg PO BID Qty: 60 RF: 0 atorvastatin 80 mg tablet 80 mg PO DAILY Qty: 30 RF: 0 metoprolol succinate 50 mg Tablet Extended Release 24 Hr 50 mg PO BID Qty: 60 RF: 0 levetiracetam [Keppra] 500 mg Tablet 500 mg PO BID Qty: 60 RF: 0 lisinopril 20 mg Tablet 20 mg PO QAM Qty: 30 RF: 0 thiamine HCl (vitamin B1) [Vitamin B-1] 100 mg Tablet 100 mg PO QAM Qty: 30 RF: 0 aspirin [Children's Aspirin] 81 mg Tablet,Chewable 81 mg PO QAM Qty: 30 RF: 0 folic acid 1 mg Tablet 1 mg PO QAM Qty: 30 RF: 0 Continued multivitamin Tablet 1 tab PO DAILY RF: 0 cholecalciferol (vitamin D3) [Vitamin D3] 25 mcg (1,000 unit) Tablet 0 mcg PO DAILY RF: 0 Discontinued ibuprofen 200 mg Tablet 400 mg PO Q6H PRN (Reason: Pain) RF: 0 Discharge Orders: Discharge Order (Routine); Ordered 04/09/21 Ordered By: Sarita Caban/Other Patient Handouts: A1C, Prediabetes, 5 Steps for Eating Healthier, Exercise: Why Fitness Matters Admission Data Admit Date/Time: 04/03/21 22:46 Attending Provider: Sarita Olmstead Admit Provider: Say Junior Primary Care Provider: PCP,NO [facility] ; Say Junior ; Hunter Estrada ; Herber Shirley Other Interventions: Discharge Summary Assessment (RN) Last Done: 04/09/21 12:57 Coding Level of Care Code D/C DAY MANAGEMENT >30 MINS Diagnoses Cerebrovascular accident I63.9 CVA mechanism: unspecified Seizure R56.9 Alcohol abuse F10.10 Atrial fibrillation I48.91 Atrial fibrillation type: unspecified Internal carotid artery stenosis I65.29 Hypertension I10 Polycythemia D75.1 Hyperbilirubinemia E80.6 Morbid obesity E66.01 Prediabetes R73.03 DVT prophylaxis Z29.9
== END 2021-04-09 14:00 | DRG 65 ==
LOC: EDBD → ED 20:16 → SUATTDRO 22:46 → 2S 22:46 → 2N 04-06 17:24